=== PATIENT | female | born 1950 | race Caucasian/White ===

== ENCOUNTER 2019-10-19 17:09 | Observation (INO) | payer MEDICARE, SELFPAY ==
[2019-10-19] VITALS (8 sets, daily range): BP systolic 122–169; BP diastolic 59–96; PULSE 64–90; RESP 14–18; TEMP 36.5–36.7; O2SAT 95–97; BMI 36.0
--- NOTE | 2019-10-19 17:33 | XR_ITS ---
WS: [id number] Portable AP upright chest, 10/19/2019 Clinical Data: chest pain Comparison: Portable chest, 10/06/2016. Findings: No nodules, masses or effusions are seen. The heart is normal. The pulmonary vascularity is not increased. No pneumonia or pneumothorax is seen. XR/XR chest 1V portable [id number] Impression: Negative chest.
--- NOTE | 2019-10-19 17:33 | ECG_ITS ---
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 Measurements Intervals [place] Rate: 71 P: 50 WV: 151 QRS: 15 QRSD: 99 T: 64 QT: 379 QTc: 414 Interpretive Statements SINUS RHYTHM ST DEVIATION AND MODERATE T-WAVE ABNORMALITY, CONSIDER LATERAL ISCHEMIA [-0.1+ mV T WAVE IN I/aVL/V5/V6] Compared to ECG 10/06/2016 15:49:52 Possible ischemia now present T-wave abnormality still present Electronically Signed On 10-20-2019 19:16:30 CDT by Bang Figueroa M.D. [email or web address]eJammingw[facility] hospitalV[facility]illion[facility].[employer]/store/OM/[id number]/[id number]
[2019-10-19] MEDS: aspirin 81 mg Chew Tablet 324 MG PO (18:06)
--- NOTE | 2019-10-19 18:22 | W.ED.WEAKNES ---
HPI - Weakness General: Chief complaint: Weakness Stated complaint: sent by dr camarena Time Seen by Provider: 10/19/19 17:43 Source: patient and family Mode of arrival: ambulatory Limitations: no limitations History of Present Illness: HPI Narrative: Mrs. Laws is a nice 69-year-old female comes in complaining of fatigue for the past 1 month and then pain in the middle of her shoulder blades for the past 3 weeks. Patient says there are nonspecific things that make her chest pain better or worse. She cannot definitively tie exertion with this making her symptoms worse. She does get partial relief with nitroglycerin. At times the pain will radiate but not consistently. Patient states that at various times she will get associated symptoms such as shortness of breath, diaphoresis, and nausea but not always consistently. Patient was seen by Dr. Kirby her construction mgr in the office today and he directed her to come here as he believes these symptoms are likely crescendo angina. Associated symptoms: Reports chest pain and nausea; Denies chills, confusion, melena, diaphoresis, dysuria, easy bruising, fever(s), headache(s), syncope or vomiting Review of Systems Const: Denies: fever(s), chills, body aches, fatigue, malaise or diaphoresis Eyes: Denies: change in vision, blurry vision, blind spots, photophobia, eye discharge or eye redness ENMT: Denies: throat pain, odynophagia, hoarseness, swelling of lips/tongue, oral sores, ear or mastoid pain, ear discharge, change in hearing or nasal discharge Card: Reports: chest pain; Denies: palpitations, irregular heart rhythm, edema, lightheadedness, syncope, pre-syncope, dyspnea on exertion or orthopnea Resp: Reports: dyspnea; Denies: productive cough, non-productive cough, wheezing, hemoptysis or chest congestion GI: Reports: nausea; Denies: abdominal pain, vomiting, hematemesis, coffee ground emesis, heartburn, diarrhea, constipation, GI cramping, hematochezia or melena : Denies: flank pain, dysuria, urinary frequency, urinary urgency or hematuria Musc: Denies: neck pain, back pain, extremity pain, extremity swelling, joint pain, joint swelling, joint redness, joint warmth or joint stiffness Skin/Breast: Denies: rash, pruritus, erythema, skin tenderness or jaundice Neuro: Denies: headache(s), numbness in extremities, weakness in extremities, sensory changes, lack of coordination, difficulty walking, dizziness, vertigo, confusion, Slurred speech present or seizure-like activity Bernardino/Lymph: Denies: easy bruising, easy bleeding, petechiae, purpura or enlarged lymph nodes All/Imm: Denies: urticaria, throat swelling, tongue swelling, facial swelling or acute wheezing PFSH ED PFSH: Medical History Atherosclerotic heart disease of [place] coronary artery without angina pectoris Chronic obstructive pulmonary disease, unspecified Essential (primary) hypertension Ischemic cardiomyopathy Type 2 diabetes mellitus without complications Surgical History H/O hysterectomy for benign disease Stented coronary artery Social History Smoking and tobacco status: former smoker Second hand smoke exposure: No Smoking risk assessment/counseling performed?: No Alcohol intake: never Physical Exam Const: COMMON NORMALS: no acute distress, patient oriented x3, no limitations, healthy appearing and well nourished GENERAL APPEARANCE: cooperative, well kempt and well developed HENMT: COMMON NORMALS: normocephalic, atraumatic, external ears normal, EAC's normal and Normal external nose present HEAD & SCALP: normal to inspection, normocephalic and atraumatic FACE & SINUS: normal facial exam and face symmetric NOSE: Normal external nose present and Normal nares present EXTERNAL EAR: Yes external ears normal EXTERNAL AUDITORY CANAL: EAC's normal MOUTH: Normal oral and palatal mucosa present, lip normal and tongue normal Eye: COMMON NORMALS: Equal, round and reactive pupils present and conjunctivae normal GENERAL EYE: appearance normal, both eyes and all related structures ALIGNMENT: Yes alignment normal PERIORBITAL: periorbital findings normal EYELID: eyelids normal CONJUNCTIVA: Yes conjunctivae normal SCLERA: sclerae normal PUPIL: Yes Equal, round and reactive pupils present Neck/C-Spine: COMMON NORMALS: full ROM, no lymphadenopathy, supple, no meningeal signs and no JVD GENERAL: Yes normal visual inspection and Yes trachea midline Chest: COMMONS NORMALS: normal inspection of the chest and normal palpation of entire chest wall Resp: COMMON NORMALS: normal respiratory effort, No retractions and No use of accessory muscles EFFORT & INSPECTION: Yes able to speak in complete sentences and Yes symmetric chest movement AUSCULTATION: no crackles, no rales, no rhonchi and no wheezes Cardio: COMMON NORMALS: no JVD, regular rate, regular rhythm, S1 normal heart sound present and S2 normal heart sound present RATE: regular rate RHYTHM: regular rhythm HEART SOUNDS: S1 normal heart sound present, S2 normal heart sound present, no click, no gallops, no murmurs, no rubs and abnormal split S2 GI: COMMON NORMALS: Soft to palpation and No hepatosplenomegaly present PALPATION: Yes Soft to palpation, No Tenderness to palpation present (GI), No Guarding due to palpation present (GI), No Rigid due to palpation, Yes No hepatosplenomegaly present, No Hernia present, No Palpable mass present and No Pulsatile mass present : COMMON NORMALS: Yes no CVA tenderness BLADDER/KIDNEY EXAM: Yes no CVA tenderness EXTERNAL FEMALE EXAM: No Hernia present Back/Pelvis: COMMON NORMALS: no CVA tenderness, thoracic and lumbar spine normal to inspection, no thoracic nor lumbar tenderness and thoraco-lumbar ROM normal Extremity: COMMON NORMALS: normal to inspection, full ROM, capillary refill normal, no joint enlargement, no clubbing, cyanosis or edema and no calf tenderness Neuro: COMMON NORMALS: patient oriented x3, CN's II-XII intact bilaterally, moves all extremities, no focal motor deficits and no sensory deficits noted MENINGEAL SIGNS: Yes no meningeal signs SPEECH: speech normal Psych: COMMON NORMALS: mental status grossly normal, Normal thought process present, cooperative, normal affect, speech normal and activity/motor behavior normal APPEARANCE: Yes well kempt SPEECH: Yes normal speech THOUGHT PROCESS: Normal thought process present Skin: COMMON NORMALS: no rashes or lesions noted, turgor normal, no jaundice, no petechiae and no mottling GENERAL SKIN EXAM: no rashes or lesions noted and turgor normal Course Vital Signs: Vital signs: Vital Signs Temperature 97.7 F 10/19/19 21:00 Pulse Rate 72 10/19/19 23:21 Respiratory Rate 16 10/19/19 23:21 Blood Pressure 122/59 10/19/19 23:21 Pulse Oximetry 95 10/19/19 23:21 MDM - Weakness MDM Narrative: Medical decision making narrative: 1999 - The case was reviewed with Dr. Camarena, he knows the patient well and and sent her over from the office. He agrees to admit and will likely perform a heart cath tomorrow. I reviewed this plan with the patient and she is in agreement. She denies having other questions or concerns. This time I see no sign of pulmonary embolism as the patient is not hypoxic, tachycardic as she has no leg pain or swelling. She was on aortic dissection she does not describe her pain as ripping or tearing or migrating and her pulses are intact without any discrepancies. Clinically the patient's symptoms sound more cardiac in nature and she has an abnormal EKG from baseline. I believe it would be most appropriate to rule her out and perform a heart cath per Dr. Colby's discretion of course. Patient's chest x-ray is normal. At this time she is pain-free after 2 sublingual nitroglycerin so we then applied nitroglycerin paste. Lab Data: Attestation: I reviewed the patient's lab results. Labs: Lab Results 10/19/19 10/19/19 10/19/19 Range/Units 18:40 18:40 18:40 WBC 6.8 (4.0-10.0) 10^3/ uL RBC 4.48 (4.1-5.3) 10^6/u L Hgb 13.5 (11.5-15.3) g/dL Hct 40.5 (37.0-47.0) % MCV 90.4 (81-99) fL MCH 30.1 (28.0-34.0) pg MCHC 33.3 (30.0-36.0) g/dL RDW 12.4 (12.1-15.1) % Plt Count 327 (130-400) 10^3/c mm MPV 10.7 H (7.4-10.4) fL Neut % (Auto) 50.0 % Lymph % (Auto) 41.7 % Anson % (Auto) 5.7 % Eos % (Auto) 2.2 % Baso % (Auto) 0.3 % Neut # (Auto) 3.40 (1.8-7.7) 10^3/u L Lymph # (Auto) 2.8 (0.8-4.8) 10^3/u L Anson # (Auto) 0.4 (0.2-0.9) 10^3/u L Eos # (Auto) 0.2 (0.0-0.8) 10^3/u L Baso # (Auto) 0.0 (0.0-0.1) 10^3/u L Nucleated RBC % (a uto) 0 % Nucleated RBCs # 0.0 /100WBC Sodium 138 (136-145) mmol/L Potassium 3.8 (3.5-5.1) mmol/L Chloride 101 (98-107) mmol/L Carbon Dioxide 25 (22-29) mmol/L Anion Gap 15.8 (5-19) BUN 15 (8-23) mg/dL Creatinine 1.1 H (0.5-0.9) mg/dL GFR Calculation 49.5 L (90-130) mL/min Glucose 133 H (65-115) mg/dL Calculated Osmolal ity 284 L (285-295) mOsm/k g Calcium 9.6 (8.5-10.5) mg/dL Total Bilirubin 0.2 (0.15-1.2) mg/dL AST 16 (0-32) U/L ALT 12 (0-33) U/L Alkaline Phosphata se 68 (35-105) IU/L Troponin T Baselin e 9 (0-10) ng/L Total Protein 7.1 (6.6-8.7) g/dL Albumin 4.6 (3.5-5.2) g/dL Globulin 2.5 (1.3-4.6) g/dL Imaging Data^: CXR: My impression: No acute cardiopulmonary findings. EKG Data^: EKG 1: Attestation: I personally reviewed and interpreted this EKG as follows: EKG interpretation date: 10/19/19 EKG interpretation time: 18:04 Interpretation: Normal sinus rhythm at 71 beats a minute, ST segment depression in V2, V4, V5, V6 and II. findings are change from previous. EKG 2: Attestation: I personally reviewed and interpreted this EKG as follows: EKG interpretation date: 10/19/19 EKG interpretation time: 19:21 Interpretation: Normal sinus rhythm at 71 beats a minute, nonspecific ST and T wave changes consistent with previous. Unchanged from previous. PAC noted. Discharge Plan Discharge Patient Disposition: Placed in Observation Admit Provider: Bang Camarena Clinical Impression: Chest pain Qualifiers: Chest pain type: unspecified Qualified Code(s): R07.9 - Chest pain, unspecified Condition: Stable Referrals: Nicanor Almeida Jr, MD [Primary Care Provider] - Discharge Date/Time: 10/19/19 20:51 Coding Level of Care Code ED Ancillary Services Manager Therapy for Chg Fwd Exam Comprehensive
[2019-10-19] MEDS: nitroglycerin 0.4 mg sublingual Tablet SUBLINGUAL ×2 (18:33→19:08)
--- NOTE | 2019-10-19 19:09 | PC.NURSE ---
Report received from Nayely, Security Risk Analyst and care transferred to MASTER Burns
[2019-10-19 19:16] LABS: Troponin(5th) Baseline 9 ng/L (0-10)
[2019-10-19 19:27] LABS: Alanine Aminotransferase 12 U/L (0-33); Albumin Level 4.6 g/dL (3.5-5.2); Alkaline Phosphatase 68 IU/L (35-105); Anion Gap 15.8 (5-19); Aspartate Amino Transferase 16 U/L (0-32); Blood Urea Nitrogen 15 mg/dL (8-23); Calcium 9.6 mg/dL (8.5-10.5); Carbon Dioxide 25 mmol/L (22-29); Chloride 101 mmol/L (98-107); Globulin 2.5 g/dL (1.3-4.6); Glomerular Filtration Rate 49.5 mL/min (90-130); Glucose 133 mg/dL (65-115); Osmolality Calculated 284 mOsm/kg (285-295); Potassium 3.8 mmol/L (3.5-5.1); Sodium 138 mmol/L (136-145); Total Bilirubin 0.2 mg/dL (0.15-1.2); Total Protein 7.1 g/dL (6.6-8.7)
[2019-10-19] MEDS: nitroglycerin 1 gm/inch oint Pkt 1 INCH TOPICAL (19:29)
--- NOTE | 2019-10-19 19:33 | ECG_ITS ---
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 Measurements Intervals [place] Rate: 71 P: 52 UT: 159 QRS: 14 QRSD: 96 T: 31 QT: 390 QTc: 425 Interpretive Statements SINUS RHYTHM ST DEVIATION AND MODERATE T-WAVE ABNORMALITY, CONSIDER LATERAL ISCHEMIA [-0.1+ mV T WAVE IN I/aVL/V5/V6] Compared to ECG 10/19/2019 18:04:45 No significant changes Electronically Signed On 10-20-2019 19:18:36 CDT by Bang Figueroa M.D. [id number]
[2019-10-19 19:46] LABS: Basophils % 0.3 %; Eosinophils # 0.2 10^3/uL (0.0-0.8); Eosinophils % 2.2 %; Hematocrit 40.5 % (37.0-47.0); Hemoglobin 13.5 g/dL (11.5-15.3); Lymphocytes # 2.8 10^3/uL (0.8-4.8); Lymphocytes % 41.7 %; Mean Corpuscular HGB Conc 33.3 g/dL (30.0-36.0); Mean Corpuscular Hemoglobin 30.1 pg (28.0-34.0); Mean Corpuscular Volume 90.4 fL (81-99); Mean Platelet Volume 10.7 fL (7.4-10.4); Monocytes # 0.4 10^3/uL (0.2-0.9); Monocytes % 5.7 %; Nucleated Red Blood Cells % 0 %; Platelet Count 327 10^3/cmm (130-400); Red Blood Count 4.48 10^6/uL (4.1-5.3); Red Cell Distribution Width 12.4 % (12.1-15.1); White Blood Count 6.8 10^3/uL (4.0-10.0)
[2019-10-19] MEDS: enoxaparin 100 mg/mL Syringe 104 MG SUBCUT (20:20)
--- NOTE | 2019-10-19 20:45 | PC.NURSE ---
morphine and zofran not given per HCP verbal orders
--- NOTE | 2019-10-19 20:58 | P.HP_ITS ---
Providers/Chief Complaint Admitting Physician: Bang Camarena MD Primary Care Provider: Nicanor Almeida Jr, MD Chief Complaint: sent by dr camarena History of Present Illness Dennise Laws is a 69 year old female past medical history significant for acute coronary syndrome status post drug-eluting stents 4 years ago, diabetes mellitus, COPD, history of tobacco abuse presented with worsening of chest pain shortness of breath despite of optimal medical management for the last 2 weeks now to the extent that in the past 1 week patient has been awakened from the sleep 2-3 times with chest pain nitroglycerin relieved it. Since yesterday chest pain remains in the background throughout the day. She has also noticed worsening of shortness of breath and extreme fatigue. Twelve-lead EKG has anterolateral inverted T wave could be ischemia. Chest pain in the ER was relieved with nitroglycerin. Patient has been therefore admitted to rule out for acute coronary syndrome and for further treatment Review of Systems Const: Denies: fever(s), chills, body aches, fatigue, malaise or diaphoresis Eyes: Denies: change in vision, blurry vision, blind spots, photophobia, eye discharge or eye redness ENMT: Denies: throat pain, odynophagia, hoarseness, swelling of lips/tongue, oral sores, ear or mastoid pain, ear discharge, change in hearing or nasal discharge Card: Reports: chest pain; Denies: palpitations, irregular heart rhythm, edema, lightheadedness, syncope, pre-syncope, dyspnea on exertion or orthopnea Resp: Reports: dyspnea; Denies: productive cough, non-productive cough, wheezing, hemoptysis or chest congestion GI: Denies: abdominal pain, nausea, vomiting, hematemesis, coffee ground emesis, heartburn, diarrhea, constipation, GI cramping, hematochezia or melena : Denies: flank pain, dysuria, urinary frequency, urinary urgency or hematuria Musc: Denies: neck pain, back pain, extremity pain, extremity swelling, joint pain, joint swelling, joint redness, joint warmth or joint stiffness Skin/Breast: Denies: rash, pruritus, erythema, skin tenderness or jaundice Neuro: Denies: headache(s), numbness in extremities, weakness in extremities, sensory changes, lack of coordination, difficulty walking, dizziness, vertigo, confusion, Slurred speech present or seizure-like activity [place]/Lymph: Denies: easy bruising, easy bleeding, petechiae, purpura or enlarged lymph nodes All/Imm: Denies: urticaria, throat swelling, tongue swelling, facial swelling or acute wheezing Medications/Allergies Home Medications Medication Instructions Recorded Confirmed Last Taken Type aspirin 81 mg tablet,delayed 81 mg PO DAILY 04/14/19 10/19/19 10/19/19 History release clopidogrel 75 mg tablet 75 mg PO DAILY 04/14/19 10/19/19 10/19/19 History glipizide 5 mg tablet 5 mg PO BID 04/14/19 10/19/19 10/19/19 History nitrofurantoin macrocrystal 50 mg 50 mg PO BEDTIME cap 04/14/19 10/19/19 10/18/19 History capsule pantoprazole 40 mg tablet,delayed 40 mg PO DAILY 04/14/19 10/19/19 10/19/19 History release prednisone 20 mg tablet See Rx Instructions .ROUTE 04/14/19 10/19/19 10/19/19 History .COMPLEX tab 10 mg simvastatin 20 mg tablet 20 mg PO DAILY 04/14/19 10/19/19 10/18/19 History losartan 50 mg-hydrochlorothiazide 1 tab PO BID #60 tab 10/08/19 10/19/19 10/19/19 Rx 12.5 mg tablet carvedilol 6.25 mg PO BID 10/19/19 10/19/19 10/19/19 History metformin 500 mg PO DAILY 10/19/19 10/19/19 10/19/19 History Allergies Allergy/AdvReac Type Severity Reaction Status Date / Time Sulfa (Sulfonamide Allergy UNKNOWN Verified 10/19/19 18:13 Antibiotics) PFSH Acute PFSH: Medical History Atherosclerotic heart disease of [place] coronary artery without angina pectoris Chronic obstructive pulmonary disease, unspecified Essential (primary) hypertension Ischemic cardiomyopathy Type 2 diabetes mellitus without complications Surgical History H/O hysterectomy for benign disease Stented coronary artery Social History Smoking and tobacco status: former smoker Second hand smoke exposure: No Smoking risk assessment/counseling performed?: No Alcohol intake: never Vitals/I&O/Wt Last Vital Signs Temp 98.1 F 10/19/19 17:11 Pulse 69 10/19/19 20:45 Resp 14 10/19/19 20:45 BP 135/61 10/19/19 20:45 Pulse Ox 96 10/19/19 20:45 Weight last 48 hrs Weight 230 lb Physical Exam Narrative: EXAM NARRATIVE: GENERAL: Patient is alert, awake and oriented x3. NECK: No jugular vein distension. HEENT: No cyanosis. No icterus. No pallor. HEART: Regular S1 and S2. No murmur, rub or gallop. LUNGS: Clear to auscultate bilaterally. ABDOMEN: Soft, nontender and nondistended. Positive bowel sounds. No guarding, rebound or tenderness. CENTRAL NERVOUS SYSTEM: Grossly nonfocal. EXTREMITIES: Lower extremities without edema bilaterally. Data : 10/19/19 18:40 10/19/19 18:40 A&P Assessment and plan (1) Chest pain: Worsening of chest pain with increasing frequency and duration in a pat ient who has prior history of coronary artery disease tobacco abuse hypertension hyperlipidemia and diabetes suspicious for unstable angina therefore we will proceed with angiogram. We will start anticoagulation. We will optimize medicine. Nitro paste will be added. Further plan will be advised Status: Acute Qualifiers: Chest pain type: unspecified Qualified Code(s): R07.9 - Chest pain, unspecified (2) Atherosclerotic heart disease of [place] coronary artery without angina pectoris: Patient has history of coronary artery disease status post drug-eluting stents. She is here with worsening of chest pain suspicious for unstable angina we will proceed with angiogram/left heart cath/PCI if indicated tomorrow in the evening. Patient has been explained all risk benefit and alternative for the procedure. She would like to proceed with it. Status: Acute Qualifiers: [place] vs. transplanted heart: [place] heart Qualified Code(s): I25.10 - Atherosclerotic heart disease of [place] coronary artery without angina pectoris (3) Essential (primary) hypertension: Optimally controlled continue medicine Status: Acute (4) Type 2 diabetes mellitus without complications: Will hold metformin and use sliding scale insulin. Status: Acute Qualifiers: Diabetes mellitus intermediate manager insulin use: unspecified intermediate manager insulin use status Qualified Code(s): E11.9 - Type 2 diabetes mellitus without complications Attestations Medical Necessity Statement*: Patient require continuation hospitalization I am expecting her stay to cross more than 2 midnights. Coding Level of Care Code New Pt Acute Processing Archivist for Aracely Cline Patient Type New History Detailed Exam Detailed Medical Decision Making Moderate Complexity Diagnoses Chest pain R07.9 Chest pain type: unspecified Atherosclerotic heart disease of [place] coronary artery without angina pectoris I25.10 [place] vs. transplanted heart: [place] heart Essential (primary) hypertension I10 Type 2 diabetes mellitus without complications E11.9 Diabetes mellitus intermediate manager insulin use: unspecified fci insulin use status
--- NOTE | 2019-10-19 21:01 | PC.NURSE ---
Patient arrived to the floor after report was received via phone. Patient is alert and oriented and ambulatory. Patient is on room air with VSS. Patient was found eating food from [employer] when this nurse walked into the room. Patient states that she does not have any pain at this. Patient was educated to let the nurse know if she has pain throughout the night and verbalized understanding. Patient has been oriented to her room and has call light within reach. Will monitor.
[2019-10-19 21:06] LABS: Troponin 5 2HR 7.65 ng/L (0-10)
--- NOTE | 2019-10-19 21:09 | PC.NURSE ---
Dr. Figueroa notified of patient currently eating. Ordered to keep patient NPO through the night and call him at 8 am to verify diet order status and time of cath procedure.
[2019-10-19 21:14] LABS: Troponin 5 2HR Delta -1.35 ABS# (0-10)
--- NOTE | 2019-10-19 21:24 | PC.NURSE ---
Dr. Figueroa notified that patient has not had the nighttime dose of her medications. Ordered to hold Glipizide and Metformin. Ordered to start mod SS and change Coreg dose to start tonight.
--- NOTE | 2019-10-19 21:41 | PC.NURSE ---
Patient states that she only has one kidney.
[2019-10-19] MEDS: hydroCHLOROthiazide 25 mg Tablet 12.5 MG PO (21:52)
[2019-10-19] MEDS: sodium chloride 0.9% 1,000 ML 100 ML IV (21:52)
[2019-10-19] MEDS: carvedilol 6.25 mg Tablet PO (21:52)
[2019-10-19 21:58] LABS: Glucose Point of Care 221 mg/dL (70-110)
--- NOTE | 2019-10-19 22:04 | PC.NURSE ---
Dr. Figueroa notified that patient did not have any pain when she first arrived to the floor, but is now complaining of the pain coming back between her shoulder blades. Ordered to give 15 mg Isosorbide PO now and SL nitro PRN.
--- NOTE | 2019-10-19 22:12 | PC.NURSE ---
Dr. Figueroa called to notify that pharmacy states we do not have 15 mg tablet available in isosorbide mono. Ordered to give 20 mg.
[2019-10-19] MEDS: isosorbide mononitrate 20 mg Tablet PO (22:17)
--- NOTE | 2019-10-19 23:22 | PC.NURSE ---
Patient was woken from her sleep to check vital signs. Patient states that her pain is gone. Will continue to monitor and reassess.
--- NOTE | 2019-10-19 23:33 | ECG_ITS ---
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 Measurements Intervals [place] Rate: 71 P: 60 OR: 169 QRS: 29 QRSD: 98 T: 214 QT: 391 QTc: 427 Interpretive Statements SINUS RHYTHM WITH SINUS ARRHYTHMIA ST DEVIATION AND MODERATE T-WAVE ABNORMALITY, CONSIDER ANTEROLATERAL ISCHEMIA [-0.1+ mV T WAVE IN V3-V6] Compared to ECG 10/19/2019 19:21:16 No significant changes Electronically Signed On 10-20-2019 19:19:13 CDT by Bang Figueroa M.D. [id number]
[2019-10-20] VITALS (16 sets, daily range): BP systolic 91–144; BP diastolic 57–78; PULSE 65–83; RESP 14–20; TEMP 36.3–36.9; O2SAT 93–99
[2019-10-20 00:57] LABS: Troponin 5 6HR 8.38 ng/L (0-10)
[2019-10-20 01:03] LABS: Troponin 5 6HR Delta -0.62 ng/L (0-12)
--- NOTE | 2019-10-20 03:17 | PC.NURSE ---
Patient states I have no pain at all right now. Will monitor.
[2019-10-20 04:33] LABS: Basophils % 0.5 %; Eosinophils # 0.2 10^3/uL (0.0-0.8); Eosinophils % 2.7 %; Hematocrit 33.5 % (37.0-47.0); Hemoglobin 11.4 g/dL (11.5-15.3); Lymphocytes # 2.9 10^3/uL (0.8-4.8); Lymphocytes % 45.4 %; Mean Corpuscular Hemoglobin 31.1 pg (28.0-34.0); Mean Corpuscular Volume 91.5 fL (81-99); Mean Platelet Volume 10.2 fL (7.4-10.4); Monocytes # 0.4 10^3/uL (0.2-0.9); Monocytes % 6.2 %; Neutrophils # 2.84 10^3/uL (1.8-7.7); Nucleated Red Blood Cells % 0 %; Platelet Count 236 10^3/cmm (130-400); Red Blood Count 3.66 10^6/uL (4.1-5.3); Red Cell Distribution Width 12.6 % (12.1-15.1); White Blood Count 6.3 10^3/uL (4.0-10.0)
[2019-10-20 04:48] LABS: Anion Gap 13.3 (5-19); Blood Urea Nitrogen 19 mg/dL (8-23); Calcium 8.2 mg/dL (8.5-10.5); Carbon Dioxide 26 mmol/L (22-29); Chloride 102 mmol/L (98-107); Glomerular Filtration Rate 49.5 mL/min (90-130); Glucose 137 mg/dL (65-115); Osmolality Calculated 285 mOsm/kg (285-295); Potassium 3.3 mmol/L (3.5-5.1); Sodium 138 mmol/L (136-145)
[2019-10-20 06:26] LABS: Glucose Point of Care 145 mg/dL (70-110)
--- NOTE | 2019-10-20 06:51 | PC.NURSE ---
chemistry lab instructor called to let me know that patient's IV would need to be moved from the right wrist to another location for possible angiogram procedure today. Attempt x2 by this RN and attempt x2 by another RN with no success. Will have another nurse try at a later time.
[2019-10-20] MEDS: sodium chloride 0.9% 1,000 ML 100 ML IV (06:53)
--- NOTE | 2019-10-20 06:54 | PC.NURSE ---
Patient is complaining of a headache at this time. Patient is stating she does not want anything for it at this time.
[2019-10-20] MEDS: atorvastatin 40 mg Tablet 20 MG PO (08:30)
[2019-10-20] MEDS: pantoprazole DR 40 mg Tablet PO (08:30)
[2019-10-20] MEDS: aspirin 81 mg EC Tablet PO (08:31)
[2019-10-20] MEDS: hydroCHLOROthiazide 25 mg Tablet 12.5 MG PO (08:31)
[2019-10-20] MEDS: clopidogrel 75 mg Tablet PO (08:31)
[2019-10-20] MEDS: losartan 50 mg Tablet PO (08:31)
[2019-10-20] MEDS: acetaminophen 325 mg Tablet 650 MG PO (08:32)
[2019-10-20] MEDS: carvedilol 6.25 mg Tablet PO (08:32)
--- NOTE | 2019-10-20 11:17 | PC.CHAP ---
Pastoral Care Encounter/Spiritual Assessment Type of Contact [] Declined roving frame tender visit [] Patient/Family/Request visit [] Outpatient visit [] Follow-up visit [] Physician referral [] Code/Alert [x] Routine visit [] Staff referral [] Actively dying [] Patient sleeping [] Family support [] [] Out of room [] Palliative care [] [x] Receiving care in room [] Pre-surgical visit [] Trauma [] Long length of stay [] ICU visit [] Other: Relational/Emotional Strength [c] Patient feels connected with others/family/visitors/staff [] Distress [] Loneliness/isolation [] Abandonment Spirituality of Patient [c] Person of [place] [] Attends Religion of their [place] [c] Believes in Prayer [] Reads Bible or Yazidism materials [] There are Spiritual issues to be addressed Primer Press Operator Interventions [c] Prayer [c] Active listening [c] Non-anxious presence [c] Spiritual/emotional support [] Crisis/trauma care [c] Spiritual counseling [] Bereavement support [] Provided bereavement packet [] Provided Bible/devotional materials [] Provided toy/stuffed animal, coloring book to patient or family member [] Provided Communion [] Anointing/[place] [] Salvation [c] Completed spiritual assessment [] Other: Impact on Illness or Injury [] Angry [] Fearful [] Anxious [] Often cries [] Exhaustion [] Unable to work [] Unable to attend pentecostalism [] Unable to walk/stand [] Unable to read [] Unable to drive [] Unable to eat/drink [] Unable to sleep [] Unable to be with family [] Patient intubated [] Other: Summary Heart needs tests, not sure about recovery, feels good communication Time spent with patient 10 mins
[2019-10-20 11:20] LABS: Glucose Point of Care 111 mg/dL (70-110)
--- NOTE | 2019-10-20 11:44 | XACV_ITS ---
Exam Room: [facility] Ht: 170 cm Wt: 104 kg BSA: 2.26 m2 Gender: Female : 1950 Any Known Allergies: Sulfa Exam Priority: Routine Procedure(s): Procedure Description: Diagnostic procedure Procedure Description: Coronary Angiography Diagnostic Cath Status: Elective Diagnostic Findings LM has 0% stenosis. mLAD: Mild 30% stenosis, JASON: 3 flow. pCIRC: Mild 30% stenosis, JASON: 3 flow. 1st OM: Mild 40% stenosis, JASON: 3 flow. pRCA: Moderate 60% stenosis, JASON: 3 flow. Coronary angiography shows right dominance. Conclusions There is moderate coronary artery disease with three vessel disease. Reason for test coronary angiogram: 70-year-old female past medical history significant for multiple stents for acute coronary syndrome mid LAD and RCA was admitted with worsening of shortness of breath chest pain despite of optimization of medicine. She was ruled out for acute coronary syndrome in the hospital. Since she has off-and-on chest pain relieved with nitroglycerin she was taken to the [facility] for further study of coronaries1-Left main is normal2-LAD has patent previously placed mid stent3-Obtuse marginal has proximal hazy-looking 30% stenosis4-LCx has proximal 30% stenosis rest of the vessel luminal irregularities5-Proximal and distal RCA stent are patent. Proximal RCA has 60% ostial stenosis dampening of pressure across that was noted it appeared to me that patient has coronary spasm however she still has moderate lesion in the ostium of the RCA. Since patient has regurgitation of the contrast in the aorta and after nitroglycerin plus because of the fact that no further dampening was observed after using sidehole catheter we decided to treat it medically. Recommendations Continue current medical management and risk factor modification. Diagnostic RX Recommendation: medical therapy and/or counseling Pressures Phase:Rest AO : 80 mmHg / 42 mmHg ( 59 mmHg ) @ 7:07:00 AM 70 mmHg / 20 mmHg ( 35 mmHg ) @ 7:11:00 AM 107 mmHg / 43 mmHg ( 67 mmHg ) @ 7:16:00 AM 95 mmHg / 43 mmHg ( 64 mmHg ) @ 7:17:00 AM 107 mmHg / 49 mmHg ( 72 mmHg ) @ 7:18:00 AM Clinical Evaluation EBL: 5mL-10mL Procedural Details Procedure Consent Obtained. Pre-Procedure Time Out. Identified patient by full name and date of as verbalized by the patient/guarantor. Does the consent match the physician's order: Yes. Accurate & Complete Informed Consent: Yes. Inpatient/Outpatient History & Physical on Chart: Yes. If H&P is completed, is and addenduem needed: Yes; If yes, is the addendum complete: Yes. Visualize and Verify Site with Patient/Guarantor: N/A. Relevant Radiology Images available: Yes. Pre-op teaching completed and patient verbalized understanding. The risks, benefits, and alternatives of sedation and/or procedure were discussed by physician. The patient agrees to continue. Procedure started. Correct patient, site and procedure confirmed by cath team. Current diagnosis: Chest Pain. PERRLA. Strong, equal hand petal shaper hand bilaterally. Lungs clear x 5 lobes. IV Site on Arrival: 20 gauge in the left anticubital. IV Fluids: 0.9% NaCl at KVO. 0 mL infused prior to lab systems analyst. Pre Procedural Pulses: bilateral dorsalis pedis was 2+. Pre Procedural Pulses: bilateral posterior tibial was 2+. Pre Procedural Pulses: bilateral radial was 3+. Oxygen started at 2liters/min via nasal canula. bilateral groins was prepped with chloroprep then draped in the usual sterile fashion. right radial was prepped with chloroprep then draped in the usual sterile fashion. Physician notified. Baseline sample Acquired. HR: 66 BPM. Physician arrived. Equipment: 6F - Radial. Cardiac Cath Pack. ACIST Manifold Kit Model BT 2000. Heparinized Saline (2 units/mL), 1000 mL bag. Physician scrubbed in. Immediate Pre-Procedure Time Out. Correct Patient: Yes; Correct Procedure: Yes; Correct Site: Yes; Correct Patient Position: Yes; Correct Supplies: Yes; Dried Flammable Prep: Yes; Blood Products Available: No;. Lidocaine 1% infiltrated to the right radial. AP pads placed on patient. Arterial access obtained. A 5 luxembourger TIG catheter in over wire. Multiple views taken of left coronary artery. Catheter redirected to the RCA. Multiple views taken of right coronary artery. Catheter out. 6 luxembourger JR 4 SH guide catheter was inserted over the wire. Side port of sheath attached to Normal Saline flush at KVO to maintain patency. TR band placed. Hemostasis obtained. Post Procedure: Pulses reassessed and unchanged. PERRLA. Strong, equal hand petal shaper hand bilaterally. No VTE prophylaxis required. Contrast type used: Omnipaque 300 mgI/mL, 500 mL bottle. Post-op diagnosis: Chest pain. Complications: None. Estimated blood loss: 5mL-10mL. [facility] Clinical Fraility Score: 3: Managing Well. [facility] Indications: Worsening Angina. Chest Pain Symptom Assessment: Typical Angina Symptoms. Cardiovascular Instability: No. Medication's Wasted: Lidocaine 1% = 18 mL. Medication's Wasted: Heparin = 1000 units. Total IV fluids: 200 mL. Vital chart was stopped. Procedure completed. Patient transferred by wheelchair to 1st floor. Site: Right Radial artery Sheath Size: 6 Fr Hemostasis Success: Unsuccessful Procedure Medications Start: 11:52 AM Stop: 11:52 AM Medication: Versed Amount: 1 mg Route: I.V. Start: 11:52 AM Stop: 11:52 AM Medication: Fentanyl Amount: 50 mcg Route: I.V. Start: 11:56 AM Stop: 11:56 AM Medication: Versed Amount: 1 mg Route: I.V. Start: 11:56 AM Stop: 11:56 AM Medication: Fentanyl Amount: 50 mcg Route: I.V. Start: 12:02 PM Stop: 12:02 PM Medication: Nitrogylcerin Amount: 200 mcg Route: I.A. Start: 12:04 PM Stop: 12:04 PM Medication: Heparin Amount: 5000 units Route: I.V. Start: 12:19 PM Stop: 12:19 PM Medication: Nitrogylcerin Amount: 200 mcg Route: I.C. I, the attending physician, have reviewed and verified all procedure medications. Yes, all medications given per verbal order History/Risk Factors Hypertension: No Dyslipidemia: No Peripheral Arterial Disease (PAD): No Myocardial Infarction (HI): No Obesity: Yes Renal Disease: No Prior Interventions PCI: Yes CABG: No Valve Surgery: No Report Signatures Finalized by:Bang Figueroa MD on 11/01/2019 6:35:29 PM
--- NOTE | 2019-10-20 13:43 | PC.NURSE ---
Patient arrived back to floor from medical lab specialist at 1245. TR band intact with 19 ml of air. Site asymptomatic. VS WNL. Nurse to continue to monitor.
--- NOTE | 2019-10-20 13:55 | PM.PN ---
Subjective Subjective: Interval history: Patient underwent angiogram which showed patent previously placed LAD and RCA stents without any significant in-stent restenosis. Patient was also noted to have proximal RCA spasm at the ostium with dampening of the pressure. Vitals/I&O/Wt Last Vital Signs Temp 98.5 F 10/20/19 10:43 Pulse 73 10/20/19 13:45 Resp 14 10/20/19 13:45 BP 140/57 10/20/19 13:45 Pulse Ox 95 10/20/19 13:45 10/19/19 10/20/19 10/20/19 22:59 06:59 14:59 Intake Total 1201.667 / 1201.667 Balance 1201.667 / 1201.667 Weight last 48 hrs Weight 230 lb Physical Exam Narrative: EXAM NARRATIVE: GENERAL: Patient is alert, awake and oriented x3. NECK: No jugular vein distension. HEENT: No cyanosis. No icterus. No pallor. HEART: Regular S1 and S2. No murmur, rub or gallop. LUNGS: Clear to auscultate bilaterally. ABDOMEN: Soft, nontender and nondistended. Positive bowel sounds. No guarding, rebound or tenderness. CENTRAL NERVOUS SYSTEM: Grossly nonfocal. EXTREMITIES: Lower extremities without edema bilaterally. Data : 10/20/19 04:08 10/20/19 04:08 A&P Assessment and plan (1) Atherosclerotic heart disease of [place] coronary artery without angina pectoris: Status post coronary angiogram with patent previously placed stents, ostial RCA coronary spasm with dampening of the pressure noted which was alleviated by using a guide with sideholes. Medical medical management was suggested. Status: Acute Qualifiers: [place] vs. transplanted heart: [place] heart Qualified Code(s): I25.10 - Atherosclerotic heart disease of [place] coronary artery without angina pectoris (2) Essential (primary) hypertension: Needs better control blood pressure will optimize medicine Status: Acute (3) Ischemic cardiomyopathy: Stable and well compensated continue medicine Status: Acute Attestations Medical Necessity Statement*: Patient may can be discharged home once complete bedrest post-cath. Coding Level of Care Code Acute Assistant Health Educator for [facility] Fwd Diagnoses Atherosclerotic heart disease of [place] coronary artery without angina pectoris I25.10 [place] vs. transplanted heart: [place] heart Essential (primary) hypertension I10 Ischemic cardiomyopathy I25.5
--- NOTE | 2019-10-20 14:01 | P.DS_ITS ---
Discharge Providers Date of Admission: 10/19/19 19:58 Date of Discharge: October 20, 2019 Attending Provider at Admission: Bang Camarena MD Attending Provider at Discharge: aBng Camarena MD Primary Care Provider: Nicanor Almeida Jr, MD Diagnoses at Discharge Discharge Diagnosis (1) Atherosclerotic heart disease of [place] coronary artery without angina pectoris: Status: Acute Qualifiers: [place] vs. transplanted heart: [place] heart Qualified Code(s): I25.10 - Atherosclerotic heart disease of [place] coronary artery without angina pectoris (2) Essential (primary) hypertension: Status: Acute (3) Ischemic cardiomyopathy: Status: Acute Reason for Visit Reason for Visit: sent by dr camarena Hospital Course Discharge Summary: For worsening of chest pain or shortness of breath and high suspicion for unstable angina patient was taken to the [facility] after ruling out for non-ST elevation [place]. She was found to have patent previously placed LAD and RCA stents. She was noted to have ostial RCA coronary spasm with dampening of pressure. It was thought not to be mechanical significant lesion. Advised adding isosorbide mononitrate to the regimen and holding atorvastatin for few days make sure that patient does not have cramps or muscular pain mistaken for cardiac. Post cath patient right wrist looks good without significant hematoma. She is completed bedrest and will be discharged soon. Advised to follow-up with primary care physician and cardiology on regular basis. Physical Exam Narrative: EXAM NARRATIVE: GENERAL: Patient is alert, awake and oriented x3. NECK: No jugular vein distension. HEENT: No cyanosis. No icterus. No pallor. HEART: Regular S1 and S2. No murmur, rub or gallop. LUNGS: Clear to auscultate bilaterally. ABDOMEN: Soft, nontender and nondistended. Positive bowel sounds. No guarding, rebound or tenderness. CENTRAL NERVOUS SYSTEM: Grossly nonfocal. EXTREMITIES: Lower extremities without edema bilaterally. Discharge Data Data Completed and Pending: Completed Studies During Hospitalization Category Date Time Status XR chest 1V rosemarie ble [id number] Urgent Exams 10/19/19 17:33 Completed Pending at discharge Category Date Time Status COMPLIANCE REVIEW OFFICER request for service Routin e Exams 10/20/19 11:44 Ordered Labs from last 24 hours 10/20/19 10/20/19 10/20/19 10:45 06:19 04:08 WBC RBC Hgb Hct MCV MCH MCHC RDW Plt Count MPV Neut % (Auto) Lymph % (Auto) [place] % (Auto) Eos % (Auto) Baso % (Auto) Neut # (Auto) Lymph # (Auto) [place] # (Auto) Eos # (Auto) Baso # (Auto) Nucleated RBC % (a uto) Nucleated RBCs # Sodium 138 Potassium 3.3 L Chloride 102 Carbon Dioxide 26 Anion Gap 13.3 BUN 19 Creatinine 1.1 H GFR Calculation 49.5 L Glucose 137 H POC Glucose 111 145 Calculated Osmolal ity 285 Calcium 8.2 L Total Bilirubin AST ALT Alkaline Phosphata se Troponin T Baselin e Troponin T 120 Min [place] Delta Troponin T Troponin T Hi Sens 6Hr Troponin T Hi Sens 6Hr Delta Total Protein Albumin Globulin 10/20/19 10/19/19 10/19/19 04:08 21:54 20:28 WBC 6.3 RBC 3.66 L Hgb 11.4 L Hct 33.5 L MCV 91.5 MCH 31.1 MCHC 34.0 RDW 12.6 Plt Count 236 MPV 10.2 Neut % (Auto) 45.0 Lymph % (Auto) 45.4 [place] % (Auto) 6.2 Eos % (Auto) 2.7 Baso % (Auto) 0.5 Neut # (Auto) 2.84 Lymph # (Auto) 2.9 [place] # (Auto) 0.4 Eos # (Auto) 0.2 Baso # (Auto) 0.0 Nucleated RBC % (a uto) 0 Nucleated RBCs # 0.0 Sodium Potassium Chloride Carbon Dioxide Anion Gap BUN Creatinine GFR Calculation Glucose POC Glucose 221 Calculated Osmolal ity Calcium Total Bilirubin AST ALT Alkaline Phosphata se Troponin T Baselin e Troponin T 120 Min [place] 7.65 Delta Troponin T -1.35 L Troponin T Hi Sens 6Hr Troponin T Hi Sens 6Hr Delta Total Protein Albumin Globulin 10/19/19 10/19/19 10/19/19 18:40 18:40 18:40 WBC 6.8 RBC 4.48 Hgb 13.5 Hct 40.5 MCV 90.4 MCH 30.1 MCHC 33.3 RDW 12.4 Plt Count 327 MPV 10.7 H Neut % (Auto) 50.0 Lymph % (Auto) 41.7 [place] % (Auto) 5.7 Eos % (Auto) 2.2 Baso % (Auto) 0.3 Neut # (Auto) 3.40 Lymph # (Auto) 2.8 [place] # (Auto) 0.4 Eos # (Auto) 0.2 Baso # (Auto) 0.0 Nucleated RBC % (a uto) 0 Nucleated RBCs # 0.0 Sodium 138 Potassium 3.8 Chloride 101 Carbon Dioxide 25 Anion Gap 15.8 BUN 15 Creatinine 1.1 H GFR Calculation 49.5 L Glucose 133 H POC Glucose Calculated Osmolal ity 284 L Calcium 9.6 Total Bilirubin 0.2 AST 16 ALT 12 Alkaline Phosphata se 68 Troponin T Baselin e 9 Troponin T 120 Min [place] Delta Troponin T Troponin T Hi Sens 6Hr Troponin T Hi Sens 6Hr Delta Total Protein 7.1 Albumin 4.6 Globulin 2.5 10/19/19 00:03 WBC RBC Hgb Hct MCV MCH MCHC RDW Plt Count MPV Neut % (Auto) Lymph % (Auto) [place] % (Auto) Eos % (Auto) Baso % (Auto) Neut # (Auto) Lymph # (Auto) [place] # (Auto) Eos # (Auto) Baso # (Auto) Nucleated RBC % (a uto) Nucleated RBCs # Sodium Potassium Chloride Carbon Dioxide Anion Gap BUN Creatinine GFR Calculation Glucose POC Glucose Calculated Osmolal ity Calcium Total Bilirubin AST ALT Alkaline Phosphata se Troponin T Baselin e Troponin T 120 Min [place] Delta Troponin T Troponin T Hi Sens 6Hr 8.38 Troponin T Hi Sens 6Hr Delta -0.62 L Total Protein Albumin Globulin Vitals: Last Vital Signs Temp 98.5 F 10/20/19 10:43 Pulse 73 10/20/19 13:45 Resp 14 10/20/19 13:45 BP 140/57 10/20/19 13:45 Pulse Ox 95 10/20/19 13:45 Discharge Plan Discharge Condition: Stable Prescriptions: New isosorbide dinitrate 10 mg tablet 5 mg PO BID Qty: 60 RF: 4 Continued aspirin [Adult Low Dose Aspirin] 81 mg tablet,delayed release (DR/EC) 81 mg PO DAILY RF: 0 simvastatin 20 mg tablet 20 mg PO DAILY RF: 0 clopidogrel 75 mg tablet 75 mg PO DAILY RF: 0 glipizide 5 mg tablet 5 mg PO BID RF: 0 pantoprazole 40 mg tablet,delayed release (DR/EC) 40 mg PO DAILY RF: 0 prednisone 20 mg tablet See Rx Instructions .ROUTE .COMPLEX RF: 0 nitrofurantoin macrocrystal [Macrodantin] 50 mg capsule 50 mg PO BEDTIME RF: 0 losartan-hydrochlorothiazide 50-12.5 mg tablet 1 tab PO BID Qty: 60 RF: 4 carvedilol 6.25 mg tablet 6.25 mg PO BID RF: 0 metformin 500 mg tablet extended release 24 hr 500 mg PO BEDTIME RF: 0 Discharge Orders: Discharge Order (Routine); Ordered 10/20/19 Ordered By: Bang Camarena Referrals: Bang Camarena MD [Physician] - Nicanor Almeida Jr, MD [Primary Care Provider] - Discharge Diet: Diabetic, Low Salt and Low Cholesterol Discharge Activity: Increase activity as tolerated Patient Instructions: Left Heart Catheterization (DC) Discharge Attestations Time Spent in Discharge Care*: less than 30 min Quality Metrics Clinical Quality Measures During this hospital stay, did patient experience: None Coding Level of Care Code Established Pt Acute Electrical Sign Wirer Helper for Shayyg Fwd Patient Type Established History Expanded Problem Focused Exam Expanded Problem Focused Medical Decision Making Moderate Complexity Diagnoses Atherosclerotic heart disease of [place] coronary artery without angina pectoris I25.10 [place] vs. transplanted heart: [place] heart Essential (primary) hypertension I10 Ischemic cardiomyopathy I25.5
--- NOTE | 2019-10-20 15:03 | PC.NURSE ---
TR band off at 1500. 19 ml of air removed per protocol. Patient tolerated well. Incision asymptomatic. Dressing applied, CDI. Nurse to continue to monitor.
[2019-10-20 16:08] LABS: Glucose Point of Care 198 mg/dL (70-110)
--- NOTE | 2019-10-21 12:18 | PC.RESP ---
Pulmonary Rehab information sent to patient.
== END 2019-10-20 16:30 | disposition home or self-care (01) ==
LOC: ER 20:14 → CSU 20:31
PROVIDERS: Emergency Medicine; Physician Assistant; Admitting Provider Internal Medicine Cardiovascular Disease; PCP Family Medicine; Visit Provider Internal Medicine Cardiovascular Disease
DX: I25.10 Atherosclerotic heart disease of native coronary artery without angina pectoris (principal); R07.9 Chest pain, unspecified; I10 Essential (primary) hypertension; E11.9 Type 2 diabetes mellitus without complications; I25.5 Ischemic cardiomyopathy; Z95.5 Presence of coronary angioplasty implant and graft; J44.9 Chronic obstructive pulmonary disease, unspecified; Z87.891 Personal history of nicotine dependence; Z79.82 Long term (current) use of aspirin; Z79.52 Long term (current) use of systemic steroids
CPT/HCPCS: 12345; 36415; 36416; 71045; 80048; 80053; 82962; 84484; 85025; 93005; 93454; 96360; 96361; 96372; 96374; 96375; 99283; 99284; 99285; C1769; C1887; C1894; G0378; J1644; J1650; J1815; J2250; J3010; J3490; J7030; Q9967

== ENCOUNTER → 2019-10-28 09:41 | Outpatient (BNVA) | payer MEDICARE, SELFPAY | PROVIDERS: PCP Family Medicine; Visit Provider Nurse Practitioner Family | DX: I25.10 Atherosclerotic heart disease of native coronary artery without angina pectoris (principal) | CPT/HCPCS: 80048 ==

== ENCOUNTER 2020-07-01 10:32 | Outpatient (CLI) | payer MEDICARE, SELFPAY ==
--- NOTE | 2020-07-01 10:39 | MM_ITS ---
WS: [id number] BILATERAL DIGITAL SCREENING MAMMOGRAPHY WITH CAD CLINICAL INFORMATION: SCREENING HISTORY: Screening mammogram. No current complaints. COMPARISON: TECHNIQUE: Bilateral CC and MLO views. FINDINGS: Scattered fibroglandular densities bilaterally. No suspicious focal mass, asymmetry, calcifications, or architectural distortion. No evidence of malignancy. A few punctate calcifications MM/[place] [id number] IMPRESSION: BI-RADS: 2-Benign FOLLOW UP: 1 Year Follow-up Recommend return to annual screening mammography.
--- NOTE | 2020-07-01 11:14 | XR_ITS ---
WS: [id number] SCREENING DEXA SCAN [place] CLINICAL INFORMATION: POSTMENOPAUSAL COMPARISON: None. FINDINGS: The L1-L4 bone mineral density measures 1.655 g/cm2. This corresponds to a T score score of 4.0 and Z score of 4.5. Left femoral neck bone mineral density measures 0.935 g/cm2. This corresponds to a T score of -0.6 an d Z score of 0.0. Right femoral neck bone mineral density measures 0.938 g/cm2. This corresponds to a T score -0.5of an d Z score of 0.0. Mean femoral neck bone mineral density measures 0.937 g/cm2. This corresponds to a T score of -0.6 an d Z score of 0.0. XR/XR DEXA axial skeleton* [id number] IMPRESSION: Normal bone mineralization. Patient's FRAX calculated 10 year probability for major osteoporotic fracture i s 18.4 % and osteoporotic hip fracture is 2.3%.
== END 2020-07-01 10:33 | disposition home or self-care (01) ==
LOC: RADSHAW 10:34
PROVIDERS: Visit Provider Nurse Practitioner
DX: Z12.31 Encounter for screening mammogram for malignant neoplasm of breast (principal); Z78.0 Asymptomatic menopausal state
CPT/HCPCS: 77067; 77080

== ENCOUNTER 2020-09-23 10:31 | Outpatient (CLI) | payer MEDICARE, SELFPAY ==
--- NOTE | 2020-09-23 10:42 | XR_ITS ---
WS: [id number] CHEST 2 VIEWS HISTORY: MUCOPURULENT CHRONIC BRONCHITIS COMPARISON: 10/19/2019 Lungs: Clear with no abnormality. No pleural effusion or pneumothorax. Cardiac size: Normal. Mediastinum/Aorta: No mediastinal widening. Scattered calcification in aorta. Bones: Normal. XR/XR chest 2V* [id number] IMPRESSION: Mild atherosclerosis aorta. Otherwise negative.
== END 2020-09-23 10:32 | disposition home or self-care (01) ==
PROVIDERS: Visit Provider Nurse Practitioner
DX: J41.1 Mucopurulent chronic bronchitis (principal); I70.0 Atherosclerosis of aorta
CPT/HCPCS: 71046

== ENCOUNTER → 2021-08-09 15:14 | Outpatient (BNVA) | payer MEDICARE, SELFPAY | PROVIDERS: Visit Provider Internal Medicine | DX: I25.10 Atherosclerotic heart disease of native coronary artery without angina pectoris (principal); I10 Essential (primary) hypertension; I25.5 Ischemic cardiomyopathy; Z87.891 Personal history of nicotine dependence | CPT/HCPCS: 99213; 99214 ==

== ENCOUNTER → 2022-05-09 13:06 | Outpatient (BNVA) | payer MEDICARE, SELFPAY | PROVIDERS: PCP Nurse Practitioner Family; Visit Provider Internal Medicine | DX: I25.10 Atherosclerotic heart disease of native coronary artery without angina pectoris (principal); I25.5 Ischemic cardiomyopathy; I11.0 Hypertensive heart disease with heart failure; I50.9 Heart failure, unspecified; Z87.891 Personal history of nicotine dependence | CPT/HCPCS: 99213 ==

== ENCOUNTER → 2023-01-09 13:41 | Outpatient (BNVA) | payer MEDICARE, SELFPAY | PROVIDERS: PCP Nurse Practitioner Family; Visit Provider Internal Medicine | DX: I25.10 Atherosclerotic heart disease of native coronary artery without angina pectoris (principal); I25.5 Ischemic cardiomyopathy; Z87.891 Personal history of nicotine dependence; I11.0 Hypertensive heart disease with heart failure; I50.9 Heart failure, unspecified | CPT/HCPCS: 99214 ==

== ENCOUNTER 2023-06-21 10:08 | Outpatient (CLI) | payer MEDICARE, SELFPAY ==
--- NOTE | 2023-06-21 10:17 | MM_ITS ---
WS: [id number] BILATERAL SCREENING DIGITAL TOMOSYNTHESIS MAMMOGRAM WITH CAD HISTORY: SCREENING COMPARISON: 07/01/2020, 11/08/2017 Bilateral CC and MLO views with tomosynthesis and synthetic mammography submitted. Computer aided det ection analyzed. Breast composition: There are scattered areas of fibroglandular density. No suspicious masses, microc alcifications or architectural distortion. Benign scattered calcifications. IMPRESSION: MM/[place] [id number] BI-RADS: 2-Benign FOLLOW UP: 1 Year Follow-up
== END 2023-06-21 10:09 | disposition home or self-care (01) ==
LOC: RAD 10:09
PROVIDERS: PCP Nurse Practitioner Family; Visit Provider Nurse Practitioner Family
DX: Z12.31 Encounter for screening mammogram for malignant neoplasm of breast (principal)
CPT/HCPCS: 77063; 77067

== ENCOUNTER → 2023-10-15 10:15 | Outpatient (BNVA) | payer MEDICARE, SELFPAY | PROVIDERS: PCP Nurse Practitioner Family; Visit Provider Nurse Practitioner Family | DX: I11.0 Hypertensive heart disease with heart failure (principal); I50.9 Heart failure, unspecified; I25.10 Atherosclerotic heart disease of native coronary artery without angina pectoris; Z87.891 Personal history of nicotine dependence | CPT/HCPCS: 99214 ==

== ENCOUNTER 2023-10-16 06:59 | Outpatient (CLI) | payer MEDICARE, SELFPAY ==
--- NOTE | 2023-10-16 07:07 | MR_ITS ---
WS: [id number] MRI LEFT KNEE NONCONTRAST TECHNIQUE: Axial PD, coronal PD fat sat, coronal PD, sagittal PD, and sagittal PD fat-sat images obta ined. CLINICAL INFORMATION: Left knee pain COMPARISON: None. FINDINGS: Distal quadriceps and patella tendons are intact. Hypertrophic patella. Grade 3-4 chondromalacia zacarias lla. Normal medial and lateral patellar retinaculum. Tiny suprapatellar effusion. Increased signal al anca the proximal MCL with fluid and edema along the superficial and deep fibers consistent with grade 1-2 injury. Distal MCL appears intact. Normal lateral collateral ligament. Few small ganglion cysts at the fibular head. Slight peripheral extrusion of the medial and lateral m eniscus. Chronic thinning of the medial and lateral meniscus bilaterally with moderate to severe narr owing in the medial and lateral joint compartments. Grade 3-4 chondromalacia. MR/MR knee LT wo con* [id number] IMPRESSION: 1. 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 2. ACL and PCL appear intact. 3. Chronic thinning of the medial and lateral meniscus with grade 3-4 chondrom alacia in the medial and lateral joint compartments. 4. Grade 1-2 injury involving the MCL with fluid and edema along the superfici al and deep fibers. 5. Grade III chondromalacia patella. Tiny suprapatellar effusion. Outbridge grading: grade IV: full-thickness cartilage loss with underlying bone reactive changes
== END 2023-10-16 07:00 | disposition home or self-care (01) ==
PROVIDERS: PCP Nurse Practitioner Family; Visit Provider Nurse Practitioner Family
DX: M17.12 Unilateral primary osteoarthritis, left knee (principal); S89.82XA Other specified injuries of left lower leg, initial encounter; X58.XXXA Exposure to other specified factors, initial encounter; M22.42 Chondromalacia patellae, left knee
CPT/HCPCS: 73721

== ENCOUNTER 2023-11-24 12:36 | Emergency (ER) | payer MEDICARE, SELFPAY ==
[2023-11-24 12:41] VITALS: BP 154/79; PULSE 89; TEMP 36.7; O2SAT 100; BMI 32.3
--- NOTE | 2023-11-24 12:45 | ECG_ITS ---
[facility] Test Date: 2023-11-24 Pat Name: Dennise Laws Department: Room: Gender: Female [employer]: : 1950 Requested By: Rae Liu Order Number: [id number] Keith MD: Waqas Akins M.D. Measurements Intervals [place] Rate: 92 P: 61 TX: 156 QRS: 37 QRSD: 91 T: 72 QT: 355 QTc: 441 Interpretive Statements SINUS RHYTHM WITH SINUS ARRHYTHMIA LOW QRS VOLTAGE IN PRECORDIAL LEADS [QRS DEFLECTION < 1.0 mV IN CHEST LEADS] MODERATE ST DEPRESSION [0.05+ mV ST DEPRESSION] Compared to ECG 10/19/2019 23:39:26 Low QRS voltage now present ST (T wave) deviation now present T-wave abnormality no longer present Possible ischemia no longer present Electronically Signed On 11-24-2023 20:07:23 CDT by Waqas Akins M.D. [id number]
--- NOTE | 2023-11-24 12:45 | XRR_ITS ---
PROCEDURE INFORMATION: Exam: XR Chest Exam date and time: 11/24/2023 1:11 PM Age: 73 years old Clinical indication: Shortness of breath; Prior surgery; Surgery date: 6+ months; Surgery type: Cardiac stents; Additional info: SOB TECHNIQUE: Imaging protocol: Radiologic exam of the chest. Views: 1 view. COMPARISON: CR XR chest 2V* [id number] 09/23/2020 10:50 AM FINDINGS: Lungs: Unremarkable. No consolidation. Pleural spaces: Unremarkable. No pleural effusion. No pneumothorax. Heart/Mediastinum: Unremarkable. No cardiomegaly. Bones/joints: No acute abnormality. XR/XR chest 1V portable [id number] IMPRESSION: No acute findings.
--- NOTE | 2023-11-24 13:22 | ED_ITS ---
HPI - Nausea/Vomiting/Diarrhea 2 General: Chief complaint: Nausea/Vomiting/Diarrhea Stated complaint: SOB/Nausea/Low BP Time Seen by Provider: 11/24/23 12:51 Source: patient Mode of arrival: ambulatory Limitations: no limitations History of Present Illness: 73-year-old female states that she had r ecently been diagnosed a UTI last week she had been on 5 days of Cipro and has been having severe nausea and vomiting over the last 2 days she has not been able to tolerate her pills or tolerate any p.o. States she has had low-grade fever she also said some slight dyspnea and back pain as well. She denies abdominal pain she denies any chest pain family is concerned she has had a history of heart disease and states she had similar symptoms to this in the past when she had stents placed. States she has had decreased urination over the last 3 days as well Associated nausea: Yes Associated symtoms: Reports fatigue and nausea; Denies chest pain or headache(s) Related Data Home Medications Medication Instructions Recorded Confirmed aspirin 81 mg tablet,delayed 81 mg PO DAILY 04/14/19 10/15/23 release (Adult Low Dose Aspirin) clopidogrel 75 mg tablet 75 mg PO DAILY 04/14/19 10/15/23 nitrofurantoin macrocrystal 50 mg 50 mg PO BEDTIME 04/14/19 10/15/23 capsule (Macrodantin) pantoprazole 40 mg tablet,delayed 40 mg PO DAILY 04/14/19 10/15/23 release carvedilol 6.25 mg tablet 6.25 mg PO BID 10/19/19 10/15/23 nitroglycerin 0.4 mg sublingual 0.4 mg sublingual Q5M PRN chest 12/04/19 10/15/23 tablet pain metformin 500 mg tablet,extended 500 mg PO DAILY 12/13/20 10/15/23 release 24 hr prednisone 20 mg tablet 5 mg PO DAILY 12/13/20 10/15/23 simvastatin 20 mg tablet 20 mg PO DAILY 05/09/22 10/15/23 tirzepatide 2.5 mg/0.5 mL mg SUBCUT 01/09/23 10/15/23 subcutaneous pen injector (Loretta) Previous Rx's Medication Instructions Recorded isosorbide dinitrate 5 mg tablet 5 mg PO BID #180 tabs 09/08/20 losartan 50 mg-hydrochlorothiazide 1 tab PO BID #180 tabs 12/05/20 12.5 mg tablet ondansetron 4 mg disintegrating 4 mg PO Q6H PRN nausea and 11/24/23 tablet vomiting #14 tabs Allergies Allergy/AdvReac Type Severity Reaction Status Date / Time Sulfa (Sulfonamide Allergy UNKNOWN Verified 11/24/23 12:41 Antibiotics) Review of Systems 2 Const: Reports: fever(s) and fatigue; Denies: chills, body aches or change in appetite ENMT: Denies: throat pain or dental pain Card: Denies: chest pain Resp: Reports: dyspnea GI: Reports: nausea and vomiting; Denies: abdominal pain or diarrhea Musc: Reports: back pain; Denies: neck pain Skin/Breast: Denies: rash Neuro: Denies: headache(s) PFSH ED 2 PFSH: Medical History Heart failure, unspecified Chronic obstructive pulmonary disease, unspecified Atherosclerotic heart disease of [place] coronary artery without angina pectoris Type 2 diabetes mellitus without complications Essential (primary) hypertension Ischemic cardiomyopathy Surgical History Stented coronary artery H/O hysterectomy for benign disease Social History Smoking and tobacco/nicotine status: former use of tobacco/nicotine Second hand smoke exposure: No Alcohol intake: never Substance/Drug Use: never Physical Exam 2 Const: COMMON NORMALS: no acute distress, patient oriented x3 and healthy appearing HENMT: COMMON NORMALS: normocephalic and atraumatic HEAD & SCALP: n ormocephalic and atraumatic Neck/C-Spine: COMMON NORMALS: full ROM and supple Chest: COMMONS NORMALS: normal inspection of the chest Resp: COMMON NORMALS: normal respiratory effort, No retractions, No use of accessory muscles and clear to auscultation bilaterally AUSCULTATION: clear to auscultation bilaterally Cardio: COMMON NORMALS: regular rate, regular rhythm and No murmurs present (Cardio) RATE: regular rate RHYTHM: regular rhythm GI: COMMON NORMALS: Normal to inspection, nondistended, normoactive bowel sounds present, Soft to palpation, non-tender and no masses PALPATION: Yes Soft to palpation Extremity: COMMON NORMALS: normal to inspection and full ROM Neuro: COMMON NORMALS: patient oriented x3, moves all extremities and no focal motor deficits Psych: COMMON NORMALS: mental status grossly normal, Normal thought process present and cooperative THOUGHT PROCESS: Normal thought process present Skin: COMMON NORMALS: no rashes or lesions noted and no wounds GENERAL SKIN EXAM: no rashes or lesions noted Course 2 Vital Signs: Vital signs: Vital Signs Temperature 98.1 F 11/24/23 12:41 Pulse Rate 68 11/24/23 14:56 Respiratory Rate 18 11/24/23 13:26 Blood Pressure 182/74 11/24/23 14:56 Pulse Oximetry 95 11/24/23 14:56 Oxygen Delivery Me thod Room Air 11/24/23 14:56 MDM - Nausea/Vomiting/Diarrhea Medical Decision Making Patient presents here been having some vomiting she had a recent UTI has been on Cipro she had some bodyaches and dyspnea her COVID is positive here she not required any oxygen here she is feeling improved after fluids she is able to produce urine no UTI at this time will prescribe her Zofran for home her troponins are normal she stable for discharge follow-up with PCP return if worsening. Medical Records I reviewed the patient's medical records. Lab Data I reviewed the patient's lab results. 11/24/23 13:48 11/24/23 13:48 Radiology Impressions Chest X-Ray 11/24/23 12:45 IMPRESSION: No acute findings. Laboratory Results WBC 6.09 10^3/uL (3.29-11.43) 11/24/23 13:48 RBC 4.16 10^6/uL (3.85-5.65) 11/24/23 13:48 Hgb 12.70 g/dL (11.27-16.99) 11/24/23 13:48 Hct 37.0 % (36-47) 11/24/23 13:48 MCV 88.9 fl (85-98) 11/24/23 13:48 MCH 30.5 pg (27-33) 11/24/23 13:48 MCHC 34.3 g/dL (30-55) 11/24/23 13:48 RDW 12.2 % (12.1-15.1) 11/24/23 13:48 Plt Count 260 10^3/cmm (157-399) 11/24/23 13:48 MPV 9.8 fL (7.4-10.4) 11/24/23 13:48 Neut % (Auto) 48.2 % 11/24/23 13:48 Lymph % (Auto) 42.4 % 11/24/23 13:48 [place] % (Auto) 7.6 % 11/24/23 13:48 Eos % (Auto) 1.0 % 11/24/23 13:48 Baso % (Auto) 0.5 % 11/24/23 13:48 Neut # (Auto) 2.94 10^3/uL (1.8-7.7) 11/24/23 13:48 Lymph # (Auto) 2.6 10^3/uL (0.8-4.8) 11/24/23 13:48 [place] # (Auto) 0.5 10^3/uL (0.2-0.9) 11/24/23 13:48 Eos # (Auto) 0.1 10^3/uL (0.0-0.8) 11/24/23 13:48 Baso # (Auto) 0.0 10^3/uL (0.0-0.1) 11/24/23 13:48 Nucleated RBC % (auto) 0 % 11/24/23 13:48 Nucleated RBCs # 0.0 /100WBC 11/24/23 13:48 Sodium 130 mmol/L (136-145) L 11/24/23 13:48 Potassium 3.9 mmol/L (3.5-5.1) 11/24/23 13:48 Chloride 92 mmol/L (98-107) L 11/24/23 13:48 Carbon Dioxide 25 mmol/L (22-29) 11/24/23 13:48 Anion Gap 16.9 (5-19) 11/24/23 13:48 BUN 18 mg/dL (8-23) 11/24/23 13:48 Creatinine 1.2 mg/dL (0.5-0.9) H 11/24/23 13:48 GFR Calculation Not Reportable 11/24/23 13:48 Glucose 145 mg/dL (65-115) H 11/24/23 13:48 Calculated Osmolality 274 mOsm/kg (285-295) L 11/24/23 13:48 Calcium 9.0 mg/dL (8.5-10.5) 11/24/23 13:48 Magnesium 1.6 mg/dL (1.7-2.3) L 11/24/23 13:48 Total Bilirubin 0.7 mg/dL (0.15-1.2) 11/24/23 13:48 AST 17 U/L (0-32) 11/24/23 13:48 ALT 11 U/L (0-33) 11/24/23 13:48 Alkaline Phosphatase 60 U/L (35-105) 11/24/23 13:48 Troponin T Baseline 14 ng/L (0-10) H 11/24/23 13:48 Troponin T 120 Minute 11.14 ng/L (0-10) H 11/24/23 15:27 Delta Troponin T -2.86 ABS# (0-10) L 11/24/23 15:27 NT-Pro-B Natriuret Pep 282 pg/mL (0-125) H 11/24/23 13:48 Total Protein 6.9 g/dL (6.6-8.7) 11/24/23 13:48 Albumin 4.0 g/dL (3.5-5.2) 11/24/23 13:48 Globulin 2.9 g/dL (1.3-4.6) 11/24/23 13:48 Lipase 29 U/L (13-60) 11/24/23 13:48 Urine Color Yellow (Yellow) 11/24/23 14:54 Urine Appearance Clear (CLEAR) 11/24/23 14:54 Urine pH 6.0 (5-7) 11/24/23 14:54 Ur Specific [place] 1.010 (1.005-1.030) 11/24/23 14:54 Urine Protein Negative (Negative) 11/24/23 14:54 Urine Glucose (UA) Negative (Normal) 11/24/23 14:54 Urine Ketones Negative (Negative) 11/24/23 14:54 Urine Blood Negative (Negative) 11/24/23 14:54 Urine Nitrate Negative (Negative) 11/24/23 14:54 Urine Bilirubin Negative (Negative) 11/24/23 14:54 Urine Urobilinogen 1.0 mg/dL (Negative) 11/24/23 14:54 Ur Leukocyte Esterase 1+ (Negative) A 11/24/23 14:54 Urine RBC 0-2 /hpf (0-2) 11/24/23 14:54 Urine WBC 6-10 /hpf (0-5) 11/24/23 14:54 Ur Squamous Epith Cells 0-5 /hpf (0-5) 11/24/23 14:54 Amorphous Sediment Not Reportable 11/24/23 14:54 Urine Bacteria None seen /hpf (NONE) 11/24/23 14:54 Hyaline Casts 0-4 /lpf H 11/24/23 14:54 SARS-CoV-2 Ag (Rapid) positive (Negative) H 11/24/23 13:49 All radiology interpretation(s) finalized by discharge EKG Data EKG 1: I personally reviewed and interpreted this EKG as follows: EKG interpretation date: 11/24/23 EKG interpretation time: 12:47 Interpretation: nsr hr [address] elevation qrs 91 qtc 405 EKG 2: I personally reviewed and interpreted this EKG as follows: EKG interpretation date: 11/24/23 EKG interpretation time: 14:40 Interpretation: nsr hr [address] elevation qrs 102 qtc 409 Discharge Plan Discharge Patient Disposition: Home Clinical Impression: COVID-19, Vomiting Condition: Stable Prescriptions: New ondansetron 4 mg tablet,disintegrating 4 mg PO Q6H PRN (Reason: nausea and vomiting) Qty: 14 0RF No Action aspirin [Adult Low Dose Aspirin] 81 mg tablet,delayed release (DR/EC) 81 mg PO DAILY clopidogrel 75 mg tablet 75 mg PO DAILY pantoprazole 40 mg tablet,delayed release (DR/EC) 40 mg PO DAILY nitrofurantoin macrocrystal [Macrodantin] 50 mg capsule 50 mg PO BEDTIME Rx Instructions: pt states she takes this medication prednisone 20 mg tablet 5 mg PO DAILY nitroglycerin 0.4 mg tablet, sublingual 0.4 mg sublingual Q5M PRN (Reason: chest pain) Mounjaro 2.5 mg/0.5 mL pen injector SUBCUT simvastatin 20 mg tablet 20 mg PO DAILY isosorbide dinitrate 5 mg tablet 5 mg PO BID Qty: 180 3RF losartan-hydrochlorothiazide 50-12.5 mg tablet 1 tab PO BID Qty: 180 3RF carvedilol 6.25 mg tablet 6.25 mg PO BID metformin 500 mg tablet extended release 24 hr 500 mg PO DAILY Discharge Orders: Discharge ED (Routine); Ordered 11/24/23 Ordered By: Rae Liu Referrals: Dhara Robertson FNP [Primary Care Provider] - 4-7 days Discharge Diet: Advance as tolerated Discharge Activity: Resume usual activity Patient Instructions: Acute Nausea and Vomiting (ED), COVID-19 (Coronavirus Disease 2019) (ED) Coding Level of Care Code ED Lumber Loader for Aracely Cline
[2023-11-24 13:26] VITALS: BP 169/98; PULSE 77; RESP 18; O2SAT 96
[2023-11-24] MEDS: ondansetron 2 mg/ML SDV 2 mL 4 MG IVP (13:39)
[2023-11-24] MEDS: sodium chloride 0.9% 1,000 ML 999 ML IV (13:45)
[2023-11-24 14:00] LABS: Basophils % 0.5 %; Eosinophils # 0.1 10^3/uL (0.0-0.8); Lymphocytes # 2.6 10^3/uL (0.8-4.8); Lymphocytes % 42.4 %; Mean Corpuscular HGB Conc 34.3 g/dL (30-55); Mean Corpuscular Hemoglobin 30.5 pg (27-33); Mean Corpuscular Volume 88.9 fl (85-98); Mean Platelet Volume 9.8 fL (7.4-10.4); Monocytes # 0.5 10^3/uL (0.2-0.9); Monocytes % 7.6 %; Neutrophils # 2.94 10^3/uL (1.8-7.7); Neutrophils % 48.2 %; Nucleated Red Blood Cells % 0 %; Platelet Count 260 10^3/cmm (157-399); Red Blood Count 4.16 10^6/uL (3.85-5.65); Red Cell Distribution Width 12.2 % (12.1-15.1); White Blood Count 6.09 10^3/uL (3.29-11.43)
[2023-11-24 14:18] LABS: SARS Covid-2 Antigen positive (Negative)
[2023-11-24 14:23] LABS: Troponin(5th) Baseline 14 ng/L (0-10)
[2023-11-24 14:28] LABS: Alanine Aminotransferase 11 U/L (0-33); Alkaline Phosphatase 60 U/L (35-105); Anion Gap 16.9 (5-19); Aspartate Amino Transferase 17 U/L (0-32); Blood Urea Nitrogen 18 mg/dL (8-23); Carbon Dioxide 25 mmol/L (22-29); Chloride 92 mmol/L (98-107); Globulin 2.9 g/dL (1.3-4.6); Glucose 145 mg/dL (65-115); Lipase 29 U/L (13-60); Magnesium 1.6 mg/dL (1.7-2.3); NT Pro B Type Natriuretic Pept 282 pg/mL (0-125); Osmolality Calculated 274 mOsm/kg (285-295); Potassium 3.9 mmol/L (3.5-5.1); Sodium 130 mmol/L (136-145); Total Bilirubin 0.7 mg/dL (0.15-1.2); Total Protein 6.9 g/dL (6.6-8.7)
[2023-11-24 14:30] LABS: Creatinine Clr Calc Pharmacy 48.7849
--- NOTE | 2023-11-24 14:50 | ECG_ITS ---
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 Measurements Intervals [place] Rate: 74 P: 49 KS: 163 QRS: 40 QRSD: 102 T: 51 QT: 382 QTc: 424 Interpretive Statements SINUS RHYTHM WITH SINUS ARRHYTHMIA Compared to ECG 10/19/2019 23:39:26 T-wave abnormality no longer present Possible ischemia no longer present Electronically Signed On 11-24-2023 20:10:40 CDT by Waqas Akins M.D. [id number]
[2023-11-24 14:56] VITALS: BP 182/74; PULSE 68; O2SAT 95
[2023-11-24 14:59] LABS: Charge for UA Resulting for Rev
[2023-11-24 15:01] LABS: Bilirubin Urine Negative (Negative); Blood Urine Negative (Negative); Glucose Urine UA Negative (Normal); Ketones Urine Negative (Negative); Leukocyte Esterase Urine 1+ (Negative); Nitrate Urine Negative (Negative); Protein Urine Negative (Negative); Urine Appearance Clear (CLEAR); Urine Color Yellow (Yellow)
[2023-11-24 15:06] LABS: Bacteria Urine None Seen /hpf; Hyaline Casts Urine 0-4 /lpf; RBC Urine 0-2 /hpf (0-2); Squamous Epithelial Cell Urine 0-5 /hpf (0-5)
[2023-11-24 15:58] LABS: Troponin 5 2HR 11.14 ng/L (0-10)
[2023-11-24 16:15] LABS: Troponin 5 2HR Delta -2.86 ABS# (0-10)
[2023-11-24 17:25] VITALS: BP 182/74; PULSE 68; RESP 18; TEMP 36.7; O2SAT 95
== END 2023-11-24 17:29 | disposition home or self-care (01) ==
PROVIDERS: Emergency Provider Emergency Medicine; PCP Nurse Practitioner Family
DX: U07.1 COVID-19 (principal); R11.11 Vomiting without nausea; Z79.02 Long term (current) use of antithrombotics/antiplatelets; Z79.82 Long term (current) use of aspirin; Z79.84 Long term (current) use of oral hypoglycemic drugs; Z79.85 Long-term (current) use of injectable non-insulin antidiabetic drugs; J44.9 Chronic obstructive pulmonary disease, unspecified; I25.10 Atherosclerotic heart disease of native coronary artery without angina pectoris; E11.9 Type 2 diabetes mellitus without complications; I25.5 Ischemic cardiomyopathy; I11.0 Hypertensive heart disease with heart failure; I50.9 Heart failure, unspecified; Z87.891 Personal history of nicotine dependence
CPT/HCPCS: 36415; 71045; 80053; 81003; 81015; 83690; 83735; 83880; 84484; 85025; 87426; 93005; 96374; 99285; J2405; J7030

== ENCOUNTER 2024-06-19 13:01 | Outpatient (CLI) | payer MEDICARE, SELFPAY ==
--- NOTE | 2024-06-19 13:16 | CT_ITS ---
WS: [id number] LDCT LUNG CANCER SCREENING TECHNIQUE: Noncontrast CT of the chest with coronal and sagittal reformatted images. CLINICAL INFORMATION: SCREENING COMPARISON: None. DLP: 82.60 mGy.cm DIvol: Mean CTDIvol: 1.70 (mGy) All CT scans at [facility] use at least one of these dose optimization techniques: automated exposure control; mA and/or kV adjustment per patient size (includes targeted exams where dose is matched to clinical indication); or iterative reconstruction. FINDINGS: Multiple scattered noncalcified nodules the largest in the upper lobes measuring up to 6 to 7 mm. Most of these appear well-circumscribed but are technically indeterminant. 8 mm nodule or area of parenchymal scarring RIGHT upper lobe anteriorly. Two 7 mm noncalcified nodules in the LEFT upper lobe. Numerous additional smaller nodules. Notable 5 mm LEFT hilar nodule. Most of these nodules were present and similar in appearance compared to 2017. A few or are new or have increased in size. Recommend 6-month follow-up. Aortic calcification. Coronary calcification. Tiny thyroid nodules. No mediastinal or hilar lymphadenopathy. No axillary lymphadenopathy. Adrenal glands are normal. Atrophic RIGHT kidney. Cholecystectomy clips. Tiny esophageal hiatal hernia. Mild thoracic curve. Mild thoracic kyphosis. CT/CT lung screening [id number] IMPRESSION: LUNG-RADS: 3-Probably Benign FOLLOW UP: 6 Month LDCT
== END 2024-06-19 13:02 | disposition home or self-care (01) ==
LOC: RAD 13:03
PROVIDERS: PCP Nurse Practitioner Family; Visit Provider Nurse Practitioner Family
DX: Z12.2 Encounter for screening for malignant neoplasm of respiratory organs (principal); Z87.891 Personal history of nicotine dependence; R91.8 Other nonspecific abnormal finding of lung field; I70.0 Atherosclerosis of aorta; I25.10 Atherosclerotic heart disease of native coronary artery without angina pectoris; N26.1 Atrophy of kidney (terminal); Z90.49 Acquired absence of other specified parts of digestive tract; M43.8X4 Other specified deforming dorsopathies, thoracic region; M40.294 Other kyphosis, thoracic region
CPT/HCPCS: 71271

== ENCOUNTER 2024-07-13 09:39 | Outpatient (CLI) | payer MEDICARE, SELFPAY ==
--- NOTE | 2024-07-13 09:51 | USCV_ITS ---
Dennise Laws Age: 74 Gender: F : 1950 Exam Date: 07/13/2024 09:58 Ordering Phys: Dhara Robertson WET MIXER Technologist: MARISSA [place] [facility] [place]: SoB BP: 119 / 81 HR: 82 Rhythm: Sinus Technical Quality: MEASUREMENTS (Male / Female) Normal Values 2D ECHO LV Diastolic Diameter PLAX 4.9 cm 4.2 - 5.9 / 3.9 - 5.3 cm IVS Diastolic Thickness 1.1 cm 0.6 - 1.0 / 0.6 - 0.9 cm IVS Systolic Thickness 1.5 cm LVPW Diastolic Thickness 1.1 cm 0.6 - 1.0 / 0.6 - 0.9 cm LVPW Systolic Thickness 1.4 cm LVOT Diameter 1.9 cm LV Ejection Fraction 2D Teich 61.1 % LV Ejection Fraction MOD 4C 62.7 % LV Ejection Fraction MOD 2C 70.1 % LV Ejection Fraction 2C AL 71.9 % LA Diameter 3.8 cm RA Systolic Volume 4C AL 23.7 ml RA Systolic Volume 4C MOD 20.9 ml LA Sys Volume AL 43.3 cm cubed LA Sys Volume Index AL 20.8 cm cubed/m squared Aorta at Sinotubular Diameter 2.7 cm IVC Diameter 1.8 cm M-MODE LA Ao Ratio MM 1.6 AV Cusp Separation MM 1.1 cm DOPPLER AV Peak Velocity 85.0 cm/s LVOT Peak Velocity 87.0 cm/s AV Area Cont Eq vti 2.8 cm squared AV Area Cont Eq pk 2.9 cm squared MV Peak Velocity 100.0 cm/s MV Area PHT 5.9 cm squared Mitral E to A Ratio 0.8 TR Peak Velocity 163.0 cm/s TR Peak Gradient 10.6 mmHg TV Peak E Velocity 58.0 cm/s PV Peak Velocity 82.0 cm/s FINDINGS Left Ventricle Normal left ventricular size and systolic function, EF 63%. No regional wall motion abnormalities. Grade I/IV diastolic dysfunction (abnormal relaxation filling pattern), normal to mildly elevated filling pressures. Mild left ventricular hypertrophy. Right Ventricle The right ventricle is normal in size and function. Right Atrium The right atrium is normal in size. Left Atrium Mildly increased left atrial size. Mitral Valve Mild mitral annular calcification. Aortic Valve No gross abnormalities noted Tricuspid Valve No gross abnormalities noted Pulmonic Valve Pulmonic valve not well visualized. Pericardium Normal pericardium without effusion. Aorta Normal ascending aorta dimension. IVC Normal inferior vena cava. CONCLUSIONS Normal left ventricular size and systolic function, EF 63%. No regional wall motion abnormalities. Grade I/IV diastolic dysfunction (abnormal relaxation filling pattern), normal to mildly elevated filling pressures. Mild left ventricular hypertrophy. Mildly increased left atrial size. Mild mitral annular calcification. There is no pericardial effusion. There are no intracardiac masses. Compared to the study from 05/19/2016, there is significant improvement of the LV ejection fraction from 41% to 63% Dr Murtaza Quispe MD [facility] (Electronically Signed) Final Date: 14 July 2024 20:13 S
== END 2024-07-13 09:40 | disposition home or self-care (01) ==
LOC: RAD 09:41
PROVIDERS: PCP Nurse Practitioner Family; Visit Provider Nurse Practitioner Family
DX: R06.02 Shortness of breath (principal); R29.898 Other symptoms and signs involving the musculoskeletal system; R93.1 Abnormal findings on diagnostic imaging of heart and coronary circulation; I51.7 Cardiomegaly; I34.81 Nonrheumatic mitral (valve) annulus calcification
CPT/HCPCS: 93306

== ENCOUNTER → 2024-07-15 14:28 | Outpatient (BNVA) | payer MEDICARE, SELFPAY | PROVIDERS: PCP Nurse Practitioner Family; Visit Provider Internal Medicine | DX: R07.89 Other chest pain (principal); R06.02 Shortness of breath; I11.0 Hypertensive heart disease with heart failure; I50.9 Heart failure, unspecified; I25.10 Atherosclerotic heart disease of native coronary artery without angina pectoris; I25.5 Ischemic cardiomyopathy; Z87.891 Personal history of nicotine dependence; Z95.5 Presence of coronary angioplasty implant and graft | CPT/HCPCS: 99214 ==

== ENCOUNTER 2024-07-31 08:55 | Outpatient (CLI) | payer MEDICARE, SELFPAY ==
[2024-07-31 09:28] VITALS: BMI 32.3
--- NOTE | 2024-07-31 09:30 | ECG_ITS ---
[facility] Test Date: 2024-07-31 Pat Name: Dennise Laws Department: Room: Gender: Female Reading Teacher: : 1950 Requested By: Waqas Akins Order Number: [id number] Keith MD: Murtaza Quispe M.D. Interpretive Statements Lung unchanged pre/post procedure; Intraprocedure shortess of breath; Symptoms resoled by discharge PROCEDURE: At the baseline, the EKG revealed normal sinus rhythm with occasional PACs. Poor R wave progression. Diffused nonspecific ST-T changes. The baseline heart was 74 bpm with a blood pressue of 149/65 mm of Hg Lexiscan was infused over a period of 20 seconds. A total of 0.4 milligrams of Lexiscan was infused. The stress phase was continued for a total of 5 minutes. Heart rate at the end of the stress phase was 103 bpm with a blood pressure 167/71 mm of Hg. The EKG at the peak infusion revealed no significant changes. Sestamibi was injected 20 seconds after the Lexiscan infusion. Heart rate at the end of the recovery phase was 93 bpm with a blood pressure of 150/68 mm of Hg. CONCLUSION: 1. No significant EKG changes with the LexiScan infusion 2. No LexiScan induced chest pain or cardiac arrhythmia 3. Normal blood pressure and heart rate response 4. Sestamibi/sestamibi perfusion scan pending; see separate report. Electronically Signed On 08-02-2024 13:03:53 CDT by Murtaza Quispe M.D. [email or web address] [id number]
--- NOTE | 2024-07-31 09:30 | NMCV_ITS ---
NM tony perf SPECT r/s* [id number] Dennise Laws Age: 74 Gender: F : 1950 Exam Date: 07/31/2024 10:06 Ordering Phys: Waqas Akins M.D ([email or web address]) Technologist: JAYMIE Connors Exam Location: [facility] Indications: cp STRESS TEST [facility] IMAGE PROTOCOL Rest/Stress 1 Lexiscan Day Radiopharmaceutical Dose (mCi) Administration Site Administered by Rest: Tc-99m 10.7 IV JAYMIE Connors Sestamibi Stress:Tc-99m 33 IV Taisha Camejo, BALLISTICS TEACHER Sestamibi Rest: 31-Jul-2024 60 Discovery 630 Stress: 31-Jul-2024 30 Discovery 630 0.4mg Lexiscan. Images obtained in supine and prone position. SPECT RESULTS Technical Quality: Good Raw Data Analysis: Normal Image Corrections: No attenuation or motion correction applied Summed Stress Score: 3 Summed Rest Score: 8 Summed Difference Score: 0 PERFUSION FINDINGS There is a small area of fixed perfusion defect seen in the apical, apical lateral and apical inferior goldstein. This is consistent with small area of prior infarct seen in these territories. No evidence of ischemia. FUNCTIONAL RESULTS (calculated via Gated SPECT) Stress Image LV EF (%): 73 Stress EDV (mL):91 TID: 1.02 Stress ESV (mL):25 FUNCTIONAL FINDINGS: There is normal left ventricular systolic function. IMPRESSIONS 1. Abnormal myocardial perfusion imaging with small sized area of prior infarct seen in apical, apical lateral and apical inferior goldstein. 2. LV systolic function is normal Waqas Akins MD (Electronically Signed) Final Date: 04 August 2024 09:04 S
[2024-07-31] MEDS: regadenoson 0.4 Mg/5 ml Syringe IVP (10:30)
[2024-07-31 10:43] VITALS: BP 150/68; PULSE 93
== END 2024-07-31 08:56 | disposition home or self-care (01) ==
LOC: CDL 08:57
PROVIDERS: Family Provider Internal Medicine Cardiovascular Disease; PCP Nurse Practitioner Family; Visit Provider Internal Medicine
DX: R07.9 Chest pain, unspecified (principal); R06.02 Shortness of breath; R93.1 Abnormal findings on diagnostic imaging of heart and coronary circulation
CPT/HCPCS: 36415; 78452; 93017; 96374; A9500; J2785

== ENCOUNTER 2024-12-07 21:51 | Inpatient (IN) | payer MEDICARE, SELFPAY ==
--- NOTE | 2024-12-07 21:54 | XRR_ITS ---
PROCEDURE INFORMATION: Exam: XR Chest Exam date and time: 12/07/2024 11:01 PM Age: 74 years old Clinical indication: Cough; Prior surgery; Surgery date: 6+ months; Surgery type: Coronary stents; Additional info: Dyspnea/cough TECHNIQUE: Imaging protocol: Radiologic exam of the chest. Views: 1 view. COMPARISON: CT lung screening [id number] 06/19/2024 1:16 PM FINDINGS: Lungs: Unremarkable. No consolidation. Pleural spaces: Unremarkable. No pleural effusion. No pneumothorax. Heart/Mediastinum: Unremarkable. No cardiomegaly. Vasculature: Advanced diffuse vascular calcification noted. Bones/joints: Unremarkable. XR/XR chest 1V portable [id number] IMPRESSION: No acute findings.
[2024-12-07 21:57] VITALS: BP 194/105; PULSE 99; RESP 16; TEMP 36.7; O2SAT 98; BMI 31.4
--- NOTE | 2024-12-07 22:00 | ECG_ITS ---
[facility] Pat Name: Dennise Laws Department: Room: Gender: Female Arabic Linguist: : 1950 Requested By: Kenneth Alonzo Order Number: [id number] Keith MD: Murtaza Quispe M.D. Measurements Intervals [place] Rate: 99 P: 56 MD: 157 QRS: -5 QRSD: 98 T: 65 QT: 325 QTc: 418 Interpretive Statements SINUS RHYTHM WITH SINUS ARRHYTHMIA POSSIBLE ANTERIOR MYOCARDIAL INFARCTION , PROBABLY OLD [30 ms Q WAVE IN V3/V4, OR R < 0.2 mV IN V4] Compared to ECG 11/24/2023 14:40:57 Myocardial infarct finding now present Electronically Signed On 12-08-2024 21:41:17 CDT by Murtaza Quispe M.D. [email or web address] [id number]
--- NOTE | 2024-12-07 22:53 | ED_ITS ---
HPI - SOB/Dyspnea 2 General: Chief Complaint: Shortness of Breath/Dyspnea Stated Complaint: High BP, CHEST PAIN Time Seen by Provider: 12/07/24 22:29 History of Present Illness: HPI Narrative: 72-year-old female presents emergency ro om she has noted what she describes as generalized weakness for the last several weeks blood pressure has been elevated at home tonight she had a pressure of 230 systolic and quite concerned presented to the emergency room she is also had dizziness. She is true vertiginous like symptoms but she does notice anything that seems to trigger it or relieve it. She is currently on several antihypertensives losartan hydrochlorothiazide Imdur carvedilol. She has shortness of breath but has not had any chest pain. She had a cardiac stress test in July of this year that showed areas of fixed perfusion defects but no areas of reversible ischemia. Associated symptoms: Deny abdominal pain, chest pain or fever(s) Related Data Home Medications ?Medication ?Instructions ?Recorded ?Confirmed aspirin 81 mg tablet,delayed 81 mg PO DAILY 04/14/19 0 07/15/24 release (Adult Low Dose Aspirin) clopidogrel 75 mg tablet 75 mg PO DAILY 04/14/1912/31 nitrofurantoin macrocrystal 50 mg 50 mg PO BEDTIME 10/2507/15/24 capsule (Macrodantin) pantoprazole 40 mg tablet,delayed 40 mg PO DAILY 04/1407/15/24 release carvedilol 6.25 mg tablet 6.25 mg PO BID 10/19/1912/31 nitroglycerin 0.4 mg sublingual 0.4 mg sublingual Q5M PRN chest 12/04/19 07/15/24 tablet pain metformin 500 mg tablet,extended 500 mg PO DAILY 12/1307/15/24 release 24 hr prednisone 20 mg tablet 5 mg PO DAILY 12/13/2007/15 simvastatin 20 mg tablet 20 mg PO DAILY 05/09/2212/31 tirzepatide 2.5 mg/0.5 mL mg SUBCUT 01/09/23 07/15/24 subcutaneous pen injector (Loretta) potassium 99 mg tablet mg PO 07/15/24 07/15/24 Previous Rx's ?Medication ?Instructions ?Recorded isosorbide dinitrate 5 mg tablet 5 mg PO BID #180 tabs 09/08/20 losartan 50 mg-hydrochlorothiazide 1 tab PO BID #180 t abs 12/05/20 12.5 mg tablet ondansetron 4 mg disintegrating 4 mg PO Q6H PRN nausea and 11/24/23 tablet vomiting #14 tabs Allergies Allergy/AdvReac Type Severity Reaction Status Date / Time Sulfa (Sulfonamide Allergy UNKNOWN Verified 07/15/24 15:22 Antibiotics) Review of Systems 2 Const: Denies: fever(s) or chills Card: Denies: chest pain Resp: Denies: dyspnea GI: Denies: abdominal pain : Denies: dysuria, urinary frequency or urinary urgency Musc: Denies: neck pain or back pain Skin/Breast: Denies: rash PFSH ED 2 PFSH: Medical History Heart failure, unspecified Chronic obstructive pulmonary disease, unspecified Atherosclerotic heart disease of [place] coronary artery without angina pectoris Type 2 diabetes mellitus without complications Essential (primary) hypertension Ischemic cardiomyopathy Surgical History Stented coronary artery H/O hysterectomy for benign disease Social History Smoking and tobacco/nicotine status: former use of tobacco/nicotine Second hand smoke exposure: No Alcohol intake: never Substance/Drug Use: never Physical Exam 2 Const: GENERAL APPEARANCE: cooperative ORIENTATION/CONSCIOUSNESS: Yes awake, Yes oriented to person, Yes oriented to place and Yes oriented to time HENMT: COMMON NORMALS: normocephalic, atraumatic and hearing grossly normal bilaterally HEAD & SCALP: normocephalic and atraumatic Resp: COMMON NORMALS: normal respiratory effort, No retractions, No use of accessory muscles and clear to auscultation bilaterally AUSCULTATION: clear to auscultation bilaterally Cardio: COMMON NORMALS: regular rate, regular rhythm and No murmurs present (Cardio) RATE: regular rate RHYTHM: regular rhythm GI: COMMON NORMALS: Soft to palpation and No hepatosplenomegaly present A USCULTATION: Yes normoactive bowel sounds PALPATION: Yes Soft to palpation, No Tenderness to palpation present (GI), No Guarding due to palpation present (GI) and Yes No hepatosplenomegaly present Extremity: COMMON NORMALS: normal to inspection, capillary refill normal, no clubbing, cyanosis or edema, no calf tenderness and no pedal edema Neuro: SENSORIUM/ORIENTATION: Yes oriented to person, Yes oriented to place and Yes oriented to time Skin: COMMON NORMALS: no rashes or lesions noted GENERAL SKIN EXAM: no rashes or lesions noted Course 2 Vital Signs: Vital signs: Vital Signs Temperature 97.7 F 12/08/24 04:00 Pulse Rate 94 12/08/24 04:00 Respiratory Rate 25 H 12/08/24 04:00 Blood Pressure 144/95 12/08/24 04:00 Pulse Oximetry 100 12/08/24 04:00 Oxygen Delivery Me thod Room Air 12/08/24 04:00 MDM - SOB/Dyspnea Medical Decision Making Positive delta [place] of +172 patient is not currently having any symptoms not had any further shortness of breath. EKG did not show any acute ST elevation she is symptom-free at this time. She had a stress test earlier this year that was read as negative for acute ischemia. It did show areas of prior infarct. Will admit initiated heparin drip topical nitro half-inch. Discussed with patient and family. Discussed with hospitalist they will contact television service engineer in the morning for consultation Medical Records IMPRESSIONS 1. Abnormal myocardial perfusion imaging with small sized area of prior infarct seen in apical, apical lateral and apical inferior goldstein. 2. LV systolic function is normal Waqas Akins MD Lab Data I reviewed the patient's lab results. 12/08/24 04:32 12/08/24 04:32 Labs/Radiology: Radiology Impressions Chest X-Ray 12/07/24 21:54 IMPRESSION: No acute findings. Head CT 12/07/24 23:08 IMPRESSION: 1. No acute intracranial abnormality. 2. Mild age-related changes. A few other chronic/incidental findings above. Laboratory Results WBC 9.01 10^3/uL (3.29-11.43) 12/07/24 23:24 RBC 4.15 10^6/uL (3.85-5.65) 12/07/24 23:24 Hgb 12.60 g/dL (11.27-16.99) 12/07/24 23:24 Hct 36.6 % (36-47) 12/07/24 23:24 MCV 88.2 fl (85-98) 12/07/24 23:24 MCH 30.4 pg (27-33) 12/07/24 23: MCHC 34.4 g/dL (30-55) 12/07/24 23:24 RDW 12.9 % (12.1-15.1) 12/07/24 23:24 Plt Count 313 10^3/cmm (157-399) 12/07/24 23:24 MPV 9.1 fL (7.4-10.4) 12/07/24 23:24 Neut % (Auto) 50.5 % 12/07/24 23:24 Lymph % (Auto) 40.8 % 12/07/24 23:24 [place] % (Auto) 7.2 % 12/07/24 23: Eos % (Auto) 0.9 % 12/07/24 23: Baso % (Auto) 0.4 % 12/07/24:24 Neut # (Auto) 4.54 10^3/uL (1.8-7.7) 12/07/24 23:24 Lymph # (Auto) 3.7 10^3/uL (0.8-4.8) 12/07/24 23:24 [place] # (Auto) 0.7 10^3/uL (0.2-0.9) 12/07/24 23:24 Eos # (Auto) 0.1 10^3/uL (0.0-0.8) 12/07/24 23: Baso # (Auto) 0.0 10^3/uL (0.0-0.1) 12/07/24 23:24 Nucleated RBC % (auto) 0 % 12/07/24: Nucleated RBCs # 0.0 /100WBC 12/07/24 23:24 D-Dimer 0.36 ug/mLFEU (0-0.59) 12/07/24 23:24 Sodium 131 mmol/L (136-145) L 12/07/24 23:24 Potassium 3.9 mmol/L (3.5-5.1) 12/07/24 23:24 Chloride 96 mmol/L (98-107) L 12/07/24 23:24 Carbon Dioxide 22 mmol/L (22-29) 12/07/24 23:24 Anion Gap 16.9 (5-19) 12/07/24 23:24 BUN 12 mg/dL (8-23) 12/07/24 23:24 Creatinine 0.8 mg/dL (0.5-0.9) 12/07/24 23:24 GFR Calculation Not Reportable 12/07/24 23:24 Glucose 137 mg/dL (65-115) H 12/07/24 23:24 Calculated Osmolality 274 mOsm/kg (285-295) L 12/07/24 23:24 Calcium 8.8 mg/dL (8.5-10.5) 12/07/24 23:24 Total Bilirubin 0.5 mg/dL (0.15-1.2) 12/07/24 23:24 AST 18 U/L (0-32) 12/07/24 23:24 ALT 14 U/L (0-33) 12/07/24 23:24 Alkaline Phosphatase 78 U/L (35-105) 12/07/24 23:24 Troponin T Baseline 59 ng/L (0-10) H 12/07/24 23:24 Troponin T 120 Minute 231.4 ng/L (0-10) H 12/07/24 01:16 Delta Troponin T 172.4 ABS# (0-10) H* 12/07/24 01:16 Total Protein 6.4 g/dL (6.6-8.7) L 12/07/24 23:24 Albumin 4.1 g/dL (3.5-5.2) 12/07/24 23:24 Globulin 2.3 g/dL (1.3-4.6) 12/07/24 23:24 All radiology interpretation(s) finalized by discharge EKG Data EKG 1: Interpretation: 12/08/1999 2520 2200. Normal sinus rhythm with a rate of 99. SC interval 157 QTc 418. Nondiagnostic Q waves in V3 and 4. EKG compared to 11/24/2023 EKG 2: Interpretation: EKG 12/07/2024 2355 sinus arrhythmia with a rate of 97. Normal 148 QTc 426. T waves inverted on this EKG compared to previous EKG done earlier today. No acute ST elevation Discharge Plan Discharge Patient Disposition: Admitted As Inpatient Admit Provider: Mio,Patience C Clinical Impression: Non-ST elevation PA (NSTEMI), Ischemic cardiomyopathy, Type 2 diabetes mellitus without complications Condition: Stable Coding Level of Care Code ED Scientific Artist for Aracely Cline
[2024-12-07 23:01] VITALS: BP 144/100; PULSE 103; RESP 19; O2SAT 99
--- NOTE | 2024-12-07 23:08 | CTR_ITS ---
PROCEDURE INFORMATION: Exam: CT Head Without Contrast Exam date and time: 12/07/2024 11:12 PM Age: 74 years old Clinical indication: Other: Vertigo, high BP; Additional info: Vertigo elevated blood pressure TECHNIQUE: Imaging protocol: Computed tomography of the head without contrast. Radiation optimization: All CT scans at this facility use at least one of these dose optimization techniques: automated exposure control; mA and/or kV adjustment per patient size (includes targeted exams where dose is matched to clinical indication); or iterative reconstruction. COMPARISON: No relevant prior studies available. RADIATION DOSE METRICS: Total DLP (mGy-cm): 1123.08 FINDINGS: Brain: No focal hemorrhage or midline shift is identified. The ventricles and parenchyma show mild atrophy and chronic bicerebral white matter ischemic change. Minimal bilateral globus pallidus calcification. Cerebral ventricles: No ventriculomegaly or evidence of hydrocephalus. Paranasal sinuses: The partially assessed sinuses are grossly clear. Mastoid air cells: Visualized mastoid air cells are well aerated. Bones: No displaced skull fracture is noted. Soft tissues: Unremarkable. Vasculature: Diffuse vascular calcifications are present. CT/CT head wo con* [id number] IMPRESSION: 1. No acute intracranial abnormality. 2. Mild age-related changes. A few other chronic/incidental findings above.
[2024-12-07 23:29] LABS: Hematocrit 36.6 % (36-47); Hemoglobin 12.60 g/dL (11.27-16.99); Mean Corpuscular HGB Conc 34.4 g/dL (30-55); Mean Corpuscular Hemoglobin 30.4 pg (27-33); Mean Corpuscular Volume 88.2 fl (85-98); Nucleated Red Blood Cells % 0 %; Platelet Count 313 10^3/cmm (157-399); Red Blood Count 4.15 10^6/uL (3.85-5.65); White Blood Count 9.01 10^3/uL (3.29-11.43)
[2024-12-07 23:30] VITALS: BP 145/111; PULSE 88; RESP 15; O2SAT 98
[2024-12-07 23:35] VITALS: BP 135/93; PULSE 115; RESP 21; O2SAT 98
[2024-12-07 23:48] LABS: Troponin(5th) Baseline 59 ng/L (0-10)
[2024-12-07 23:54] LABS: Alanine Aminotransferase 14 U/L (0-33); Albumin Level 4.1 g/dL (3.5-5.2); Alkaline Phosphatase 78 U/L (35-105); Anion Gap 16.9 (5-19); Aspartate Amino Transferase 18 U/L (0-32); Blood Urea Nitrogen 12 mg/dL (8-23); Calcium 8.8 mg/dL (8.5-10.5); Carbon Dioxide 22 mmol/L (22-29); Chloride 96 mmol/L (98-107); Creatinine Clr Calc Pharmacy 71.2068; Globulin 2.3 g/dL (1.3-4.6); Glucose 137 mg/dL (65-115); Osmolality Calculated 274 mOsm/kg (285-295); Potassium 3.9 mmol/L (3.5-5.1); Sodium 131 mmol/L (136-145); Total Protein 6.4 g/dL (6.6-8.7)
--- NOTE | 2024-12-07 23:54 | ECG_ITS ---
[facility] Test Date: 2024-12-07 Pat Name: Dennise Laws Department: Room: Gender: Female Uke Driver: : 1950 Requested By: Kenneth Alonzo Order Number: [id number] Keith MD: Murtaza Quispe M.D. Measurements Intervals [place] Rate: 97 P: 48 MO: 148 QRS: -23 QRSD: 94 T: 130 QT: 335 QTc: 426 Interpretive Statements SINUS RHYTHM WITH SINUS ARRHYTHMIA POSSIBLE ANTERIOR MYOCARDIAL INFARCTION , PROBABLY OLD [30 ms Q WAVE IN V3/V4, OR R < 0.2 mV IN V4] MODERATE T-WAVE ABNORMALITY, CONSIDER LATERAL ISCHEMIA [-0.1+ mV T-WAVE IN I/aVL/V5/V6] Compared to ECG 12/07/2024 22:00:47 T-wave abnormality now present Possible ischemia now present Myocardial infarct finding still present Electronically Signed On 12-08-2024 21:55:34 CDT by Murtaza Quispe M.D. [id number] [id number]
[2024-12-08] VITALS (18 sets, daily range): BP systolic 97–163; BP diastolic 57–98; PULSE 65–108; RESP 14–27; TEMP 36.5–36.7; O2SAT 95–100
[2024-12-08 01:57] LABS: Troponin 5 2HR 231.4 ng/L (0-10); Troponin 5 2HR Delta 172.4 ABS# (0-10)
[2024-12-08] MEDS: nitroglycerin 1 gm/inch oint Pkt 0.5 INCH TOPICAL (02:35)
[2024-12-08] MEDS: heparin 5,000 unit/mL INJ 1 mL IVP (02:38)
[2024-12-08] MEDS: heparin drip 25,000 UNIT/500 ML PREMIX 25 UNIT IV (02:54)
--- NOTE | 2024-12-08 03:54 | ECG_ITS ---
[facility] [employer] Test Date: 2024-12-08 Pat Name: Dennise Laws Department: Room: 105 Gender: Female Patternmaker Grader: : 1950 Requested By: Kenneth Alonzo Order Number: [id number] Keith MD: Murtaza Quispe M.D. Measurements Intervals [place] Rate: 92 P: 52 MN: 153 QRS: -41 QRSD: 91 T: 176 QT: 320 QTc: 397 Interpretive Statements SINUS RHYTHM WITH MARKED SINUS ARRHYTHMIA LEFT AXIS DEVIATION [QRS AXIS < -30] LOW QRS VOLTAGE IN EXTREMITY LEADS [QRS DEFLECTION < 0.5 mV IN LIMB LEADS] POSSIBLE ANTERIOR MYOCARDIAL INFARCTION , OF INDETERMINATE AGE [30 ms Q WAVE IN V3/V4, OR R < 0.2 mV IN V4] Compared to ECG 12/07/2024 23:55:41 Left-axis deviation now present Low QRS voltage now present T-wave abnormality no longer present Possible ischemia no longer present Myocardial infarct finding still present Electronically Signed On 12-08-2024 21:54:29 CDT by Murtaza Quispe M.D. [email or web address]
--- NOTE | 2024-12-08 04:41 | P.HP_ITS ---
Providers/Chief Complaint 2 Admitting Physician: Cathleen Lieberman MD--- patient was seen and evaluated after 12 midnight Primary Care Provider: CHACE Murillo Chief Complaint: High BP, CHEST PAIN History of Present Illness Dennise Laws is a 74 year old female with medical history significant for cardiovascular heart disease who had had chest pain in July and was stressed and at that time stress test was negative. Patient now is coming in with shortness of breath that have been ongoing for the past 1 week. Patient also has been having hypertension associated with this. Troponin obtained showed a level of 231.4 and a delta that is remarkably elevated at 172.4. Patient was immediately started on heparin drip with cardiology consultation. D-dimer was done and it was negative. Cardiology will be seeing this patient. I have seen and evaluated patient patient seems very comfortable and doing much better. Review of Systems 2 Narrative: System review upon 10 organ review were significant for cardiorespiratory system Medications/Allergies Home Medications ?Medication ?Instructions ?Recorded ?Confirmed ?Last Taken ?Type aspirin 81 mg tablet,delayed 81 mg PO DAILY 04/14/19 0 07/15/24 10/19/19 History release (Adult Low Dose Aspirin) clopidogrel 75 mg tablet 75 mg PO DAILY 04/14/19 04/0 12/3110/19/19 History nitrofurantoin macrocrystal 50 mg 50 mg PO BEDTIME 10/2507/15/24 10/18/19 History capsule (Macrodantin) pantoprazole 40 mg tablet,delayed 40 mg PO DAILY 04/1407/15/24 10/19/19 History release carvedilol 6.25 mg tablet 6.25 mg PO BID 10/19/19 04/0 12/3110/19/19 History nitroglycerin 0.4 mg sublingual 0.4 mg sublingual Q5M PRN chest 12/04/19 07/15/24 Unknown History tablet pain isosorbide dinitrate 5 mg tablet 5 mg PO BID #180 tabs 09/08/20 07/15/24 Unknown Rx losartan 50 mg-hydrochlorothiazide 1 tab PO BID #180 t abs 12/05/20 07/15/24 Unknown Rx 12.5 mg tablet metformin 500 mg tablet,extended 500 mg PO DAILY 12/1307/15/24 Unknown History release 24 hr prednisone 20 mg tablet 5 mg PO DAILY 12/13/2007/15 Unknown History simvastatin 20 mg tablet 20 mg PO DAILY 05/09/22 04/12/31 Unknown History tirzepatide 2.5 mg/0.5 mL mg SUBCUT 01/09/23 07/15/24 Unknown History subcutaneous pen injector (Loretta) ondansetron 4 mg disintegrating 4 mg PO Q6H PRN nausea and 11/24/23 07/15/24 Unknown Rx tablet vomiting #14 tabs potassium 99 mg tablet mg PO 07/15/24 07/15/24 Unkn own History Allergies Allergy/AdvReac Type Severity Reaction Status Date / Time Sulfa (Sulfonamide Allergy UNKNOWN Verified 07/15/24 15:22 Antibiotics) PFSH Acute 2 PFSH: Medical History (Updated 12/08/24 @ 04:47 by Cathleen Lieberman MD) Heart failure, unspecified Chronic obstructive pulmonary disease, unspecified Atherosclerotic heart disease of [place] coronary artery without angina pectoris Type 2 diabetes mellitus without complications Essential (primary) hypertension Ischemic cardiomyopathy Surgical History Stented coronary artery H/O hysterectomy for benign disease Social History Smoking and tobacco/nicotine status: former use of tobacco/nicotine Second hand smoke exposure: No Alcohol intake: never Substance/Drug Use: never Vitals/I&O/Wt Last Vital Signs Temp 97.7 F 12/08/24 04:00 Pulse 94 12/08/24 04:00 Resp 25 H 12/08/24 04:00 BP 144/95 12/08/24 04:00 Pulse Ox 100 12/08/24 04:00 O2 Del Method Room Air 12/08/24 04:00 12/07/24 12/07/24 12/08/24 14:59 22:59 06:59 Intake Total 0 / 0 Output Total 0 / 0 Balance 0 / 0 Weight last 48 hrs Weight 85.91 kg Weight 88.451 kg Physical Exam 2 Narrative: General The patient looks well in no apparent distress at this time did have shortness of breath commenting and she is at rest and she has heparin drip going on denies any complaints at the moment. HEENT normocephalic/atraumatic neck neck is supple cardiovascular heart rate is regular lungs are pretty much clear abdomen soft nontender nondistended unremarkable extremities are intact no edema has good pulses neurology has no focality lab studies lab studies reviewed and noted. Data 12/07/24 23:24 12/07/24 23:24 A&P Assessment and plan 1. Dyspnea: 2. Chest pain: 3. Essential (primary) hypertension: 4. Type 2 diabetes mellitus without complications: 5. Atherosclerotic heart disease of [place] coronary artery without angina pectoris: 6. Ischemic cardiomyopathy: Plan: #1 Chest pain with associated shortness of breath - Workup showed elevation of troponin 231.4 and a delta increase of 172.4 - Admit to stepdown unit - Initiated heparin drip with cardiology consultation - Initiate all cardiac medications that is appropriate significant for antiplatelets beta-alecia nitrates #2 Uncontrolled high blood pressure -keep patient normotensive - This can also induce chest pain and cause troponin elevation as well. #3 Ischemic cardiomyopathy - Keep medication cardiac friendly #4 Diabetes type 2/hypertension/diabetes type 2/hyperlipidemia - Keep patient euglycemic - Continue patient home medication for all chronic medical problems #5 GI and DVT prophylaxis in place PDMP PDMP Reviewed: Last Reviewed 12/08/24 04:48 by Cathleen Lieberman MD Attestations 2 Medical Necessity Statement*: Patient with shortness of breath and chest pain with much elevated delta enzymes will need at least 2 midnights for optimization of care with cardiology consultation. Coding Level of Care Code 79416 Diagnoses Dyspnea R06.00 Chest pain R07.9 Essential (primary) hypertension I10 Type 2 diabetes mellitus without complications E11.9 Atherosclerotic heart disease of [place] coronary artery without angina pectoris I25.10 Ischemic cardiomyopathy I25.5 Time Spent (min) 60
[2024-12-08 04:43] LABS: Hematocrit 35.0 % (36-47); Hemoglobin 12.20 g/dL (11.27-16.99); Mean Corpuscular HGB Conc 34.9 g/dL (30-55); Mean Corpuscular Hemoglobin 31.0 pg (27-33); Mean Corpuscular Volume 88.8 fl (85-98); Nucleated Red Blood Cells % 0 %; Platelet Count 297 10^3/cmm (157-399); Red Blood Count 3.94 10^6/uL (3.85-5.65); White Blood Count 14.85 10^3/uL (3.29-11.43)
[2024-12-08 05:08] LABS: Alanine Aminotransferase 13 U/L (0-33); Albumin Level 3.7 g/dL (3.5-5.2); Alkaline Phosphatase 73 U/L (35-105); Anion Gap 17.3 (5-19); Aspartate Amino Transferase 19 U/L (0-32); Blood Urea Nitrogen 12 mg/dL (8-23); Calcium 8.5 mg/dL (8.5-10.5); Carbon Dioxide 22 mmol/L (22-29); Chloride 96 mmol/L (98-107); Creatinine Clr Calc Pharmacy 62.3883; Globulin 2.4 g/dL (1.3-4.6); Glucose 125 mg/dL (65-115); Magnesium 1.5 mg/dL (1.7-2.3); Osmolality Calculated 275 mOsm/kg (285-295); Potassium 3.3 mmol/L (3.5-5.1); Sodium 132 mmol/L (136-145); Total Protein 6.1 g/dL (6.6-8.7)
[2024-12-08 05:15] LABS: Troponin 5 6HR 324.4 ng/L (0-10); Troponin 5 6HR Delta 265.4 ng/L (0-12)
--- NOTE | 2024-12-08 08:55 | PM.CONSULT ---
Providers/Reason For Consult Consulting Physician/Specialty*: BOOKER Quispe MD/cardiology Reason for Consult*: Patient with the chest pain and elevated troponin T Attending Physician: Tanna Smith MD Primary Care Provider: CHACE Murillo History of Present Illness History of Present Illness Eliz Laws is a 74 year old female is admitted to hospital with complaints of recurrent episodes of back pain and neck pain. She was found to have elevated troponin T with a significant delta. Cardiology consult requested for further cardiac evaluation and recommendations. This patient is known to have atherosclerotic heart disease, high blood pressure, diabetes and dyslipidemia. She apparently had PCI approximately 8 years ago. In 2019, she had a cardiac catheterization which revealed a mild to moderate diffuse coronary artery disease. It was opted to treat her medically at that time. Over the last 2 months, she been having episodes of back pain radiate to the neck. She may have these episodes 2 or 3 times a week. Each of these episodes may last for 10 to 15 minutes. The pain was moderate intensity. Usually these episodes subside spontaneously or with the 1 sublingual nitro. She also has been feeling tired easily and also of been feeling weak in her legs for the last few months. She had a Myocardial perfusion imaging in July of this year which revealed the small area of fixed defects around the apex. No reversible defects were noted. It was opted to treat him medically at that time. She denies any fever, chills or cough. No nausea or vomiting. No orthopnea or PND. No other specific complaints. She has been compliant with the medications. She has a family history-both parents had atherosclerotic heart disease in their 60s and 70s. No other relevant family history. She had contrast-induced nephropathy in 2019 following the angiogram. The kidney function improved spontaneously. Details of the previous angiogram as mentioned below Her initial troponin T was 59 with a delta of 175 in 2 hours and 262 innd 6 hours Review of Systems Narrative: CONSTITUTIONAL: No fever or chills. No fever, chills or cough EYES: No blurring of vision or other visual disturbances lately. ENT: No hoarseness of voice, auditory disturbances or sore throat. CARDIOVASCULAR: As mentioned above. RESPIRATORY: No significant cough. GASTROINTESTINAL: No hematemesis or melena. GENITOURINARY: No dysuria or hematuria. INTEGUMENTARY: No skin rashes or history of skin cancer. NEURO: No transient ischemic attacks or amaurosis. PSYCHIATRIC: No history of psychosis or major depression. HEMATOLOGIC: No bleeding disorders or significant anemia. ENDOCRINE: No history of polyuria or polydipsia. MUSCULOSKELETAL: No recent joint pain or swelling. ALLERGY/IMMUNOLOGY: As mentioned above. Medications/Allergies Home Medications ?Medication ?Instructions ?Recorded ?Confirmed ?Last Taken ?Type aspirin 81 mg tablet,delayed 81 mg PO DAILY 04/14/19 12/08/24 12/07/24 History release (Adult Low Dose Aspirin) clopidogrel 75 mg tablet 75 mg PO DAILY 04/14/19 12/08/24 12/07/24 History pantoprazole 40 mg tablet,delayed 40 mg PO DAILY 04/14/19 12/08/24 12/07/24 History release carvedilol 6.25 mg tablet 6.25 mg PO BID 10/19/19 12/08/24 12/07/24 History nitroglycerin 0.4 mg sublingual 0.4 mg sublingual Q5M PRN chest 12/04/19 12/08/24 Unknown History tablet pain isosorbide dinitrate 5 mg tablet 5 mg PO BID #180 tabs 09/08/20 12/08/24 12/07/24 Rx losartan 50 mg-hydrochlorothiazide 1 tab PO BID #180 tabs 12/05/20 12/08/24 12/07/24 Rx 12.5 mg tablet metformin 500 mg tablet,extended 500 mg PO DAILY 12/13/20 12/08/24 12/07/24 History release 24 hr simvastatin 20 mg tablet 20 mg PO DAILY 05/09/22 12/08/24 12/07/24 History nitrofurantoin macrocrystal 50 mg 50 mg PO BEDTIME 12/08/24 12/08/24 12/07/24 History capsule potassium gluconate 600 mg (99 mg) 600 mg PO DAILY 12/08/24 12/08/24 12/07/24 History tablet prednisone 5 mg tablet 5 mg PO DAILY 12/08/24 12/08/24 12/07/24 History tirzepatide 7.5 mg/0.5 mL 7.5 mg SUBCUT Q7D 12/08/24 12/08/24 12/07/24 History subcutaneous pen injector (Mounjaro) Allergies Allergy/AdvReac Type Severity Reaction Status Date / Time Sulfa (Sulfonamide Allergy UNKNOWN Verified 07/15/24 15:22 Antibiotics) Current Medications Generic Name Dose Route Start Last Admin Trade Name Thao PRN Reason Stop Dose Admin Heparin Sodium/Sodium Chloride 25,000 unit in 500 mls @ 0 mls/hr 12/08/24 02:00 12/08/24 02:54 Heparin Drip IV 14.13 unit/kg/hr CONT JACKIE 25 mls/hr Protocol Administration Per Protocol Sodium Chloride 1,000 mls @ 75 mls/hr 12/08/24 03:45 12/08/24 05:47 Sodium Chloride 0.9% IV 75 mls/hr .[id number] JACKIE Administration Sodium Chloride 1,000 mls @ 100 mls/hr 12/08/24 04:14 12/08/24 05:47 Sodium Chloride 0.9% IV Not Given .Q10H JACKIE Pantoprazole Sodium 40 mg 12/08/24 09:00 12/08/24 08:[address] 40 Mg Tablet PO 40 mg DAILY JACKIE Administration PFSH Acute PFSH: Medical History Heart failure, unspecified Chronic obstructive pulmonary disease, unspecified Atherosclerotic heart disease of [place] coronary artery without angina pectoris Type 2 diabetes mellitus without complications Essential (primary) hypertension Ischemic cardiomyopathy Surgical History Stented coronary artery H/O hysterectomy for benign disease Social History Smoking and tobacco/nicotine status: former use of tobacco/nicotine Second hand smoke exposure: No Alcohol intake: never Substance/Drug Use: never Vitals/I&O/Wt Last Vital Signs Temp 98.1 F 12/08/24 07:17 Pulse 97 12/08/24 07:17 Resp 16 12/08/24 07:17 BP 111/64 12/08/24 07:17 Pulse Ox 96 12/08/24 07:17 O2 Del Method Room Air 12/08/24 04:17 12/07/24 12/08/24 12/08/24 22:59 06:59 14:59 Intake Total 0 / 0 Output Total 0 / 0 Balance 0 / 0 Weight last 48 hrs Weight 189 lb 6.4 oz Weight 195 lb Physical Exam Narrative: GENERAL: The patient is alert and oriented times three. Not in any acute distress. HEENT: No significant pallor, icterus or lymphadenopathy.Oral cavity: There are no mucous membrane lesions. NECK: Trachea appears to be central. No masses noted. No JVD or thyromegaly appreciated. RESPIRATORY: Chest is symmetrical. No intercostals muscle retraction or any accessory muscle activation. There is no chest wall tenderness. Breath sounds are heard bilaterally. No rales or rhonchi heard. No evidence of any consolidation. BREASTS: Deferred. HEART: The heart sounds are normal. No S3 or S4. No significant murmurs. No pericardial rub ABDOMEN: No vessel pulsations or distention. No tenderness. No organomegaly appreciated. Bowel sounds are normally heard. : Deferred. RECTAL: Deferred. LYMPHATIC: No lymphadenopathy noted in the neck. EXTREMITIES: The peripheral pulses are palpable but weak bilaterally. SKIN: There are no significant rashes or ecchymosis NEUROPSYCHIATRIC: The patient is alert and oriented x3. Appears to be in a good mood. No tremors or rigidity noted. Data 12/08/24 04:32 12/08/24 04:32 Other Labs: Laboratory Last Values WBC 14.85 10^3/uL (3.29-11.43) H 12/08/24 04:32 RBC 3.94 10^6/uL (3.85-5.65) 12/08/24 04:32 Hgb 12.20 g/dL (11.27-16.99) 12/08/24 04:32 Hct 35.0 % (36-47) L 12/08/24 04:32 MCV 88.8 fl (85-98) 12/08/24 04:32 MCH 31.0 pg (27-33) 12/08/24 04:32 MCHC 34.9 g/dL (30-55) 12/08/24 04:32 RDW 12.9 % (12.1-15.1) 12/08/24 04:32 Plt Count 297 10^3/cmm (157-399) 12/08/24 04:32 MPV 9.4 fL (7.4-10.4) 12/08/24 04:32 Neut % (Auto) 62.4 % 12/08/24 04:32 Lymph % (Auto) 29.6 % 12/08/24 04:32 [place] % (Auto) 6.1 % 12/08/24 04:32 Eos % (Auto) 1.1 % 12/08/24 04:32 Baso % (Auto) 0.4 % 12/08/24 04:32 Neut # (Auto) 9.26 10^3/uL (1.8-7.7) H 12/08/24 04:32 Lymph # (Auto) 4.4 10^3/uL (0.8-4.8) 12/08/24 04:32 [place] # (Auto) 0.9 10^3/uL (0.2-0.9) 12/08/24 04:32 Eos # (Auto) 0.2 10^3/uL (0.0-0.8) 12/08/24 04:32 Baso # (Auto) 0.1 10^3/uL (0.0-0.1) 12/08/24 04:32 Nucleated RBC % (auto) 0 % 12/08/24 04:32 Nucleated RBCs # 0.0 /100WBC 12/08/24 04:32 D-Dimer 0.36 ug/mLFEU (0-0.59) 12/07/24 23:24 Sodium 132 mmol/L (136-145) L 12/08/24 04:32 Potassium 3.3 mmol/L (3.5-5.1) L 12/08/24 04:32 Chloride 96 mmol/L (98-107) L 12/08/24 04:32 Carbon Dioxide 22 mmol/L (22-29) 12/08/24 04:32 Anion Gap 17.3 (5-19) 12/08/24 04:32 BUN 12 mg/dL (8-23) 12/08/24 04:32 Creatinine 0.9 mg/dL (0.5-0.9) 12/08/24 04:32 GFR Calculation Not Reportable 12/08/24 04:32 Glucose 125 mg/dL (65-115) H 12/08/24 04:32 Calculated Osmolality 275 mOsm/kg (285-295) L 12/08/24 04:32 Calcium 8.5 mg/dL (8.5-10.5) 12/08/24 04:32 Magnesium 1.5 mg/dL (1.7-2.3) L 12/08/24 04:32 Total Bilirubin 0.5 mg/dL (0.15-1.2) 12/08/24 04:32 AST 19 U/L (0-32) 12/08/24 04:32 ALT 13 U/L (0-33) 12/08/24 04:32 Alkaline Phosphatase 73 U/L (35-105) 12/08/24 04:32 Troponin T Baseline 59 ng/L (0-10) H 12/07/24 23:24 Troponin T 120 Minute 231.4 ng/L (0-10) H 12/07/24 01:16 Delta Troponin T 172.4 ABS# (0-10) H* 12/07/24 01:16 Troponin T Hi Sens 6Hr 324.4 ng/L (0-10) H 12/08/24 04:32 Troponin T Hi Sens 6Hr Delta 265.4 ng/L (0-12) H* 12/08/24 04:32 Total Protein 6.1 g/dL (6.6-8.7) L 12/08/24 04:32 Albumin 3.7 g/dL (3.5-5.2) 12/08/24 04:32 Globulin 2.4 g/dL (1.3-4.6) 12/08/24 04:32 Other data: EKG from today Normal sinus rhythm with poor R wave progression. Low voltage complexes in the limb leads. Diffuse nonspecific T wave changes in the anterolateral leads. Left axis deviation. Myocardial perfusion imaging on 07/31/2024 1. Abnormal myocardial perfusion imaging with small sized area of prior infarct seen in apical, apical lateral and apical inferior goldstein. 2. LV systolic function is normal Echocardiogram on 07/13/2024 Normal left ventricular size and systolic function, EF 63%. No regional wall motion abnormalities. Grade I/IV diastolic dysfunction (abnormal relaxation filling pattern), normal to mildly elevated filling pressures. Mild left ventricular hypertrophy. Mildly increased left atrial size. Mild mitral annular calcification. There is no pericardial effusion. There are no intracardiac masses. Compared to the study from 05/19/2016, there is significant improvement of the LV ejection fraction from 41% to 63% Cardiac catheterization on 10/20/2019 LM has 0% stenosis. mLAD: Mild 30% stenosis, JASON: 3 flow. pCIRC: Mild 30% stenosis, JASON: 3 flow. 1st OM: Mild 40% stenosis, JAOSN: 3 flow. pRCA: Moderate 60% stenosis, JASON: 3 flow. Coronary angiography shows right dominance. A&P Assessment and plan 1. Non-ST elevation [place] (NSTEMI): This patient is going to features of a non-ST elevation myocardial infarction. She will be treated with Lovenox, Plavix, aspirin, beta-alecia and other symptomatic measures. 2. Atherosclerosis of [place] coronary artery of [place] heart without angina pectoris: Patient is known to have previous PCI. Angiogram in 2020 revealed mild to moderate diffuse coronary artery disease. Repeat coronary angiogram would be appropriate to reevaluate the coronary status and decide on further management. 3. Essential (primary) hypertension: The blood pressure seems to be fairly under control. May continue on the current medications. 4. Type 2 diabetes mellitus without complication, unspecified whether superintendent container terminal insulin use: Optimize the treatment as per the primary. 5. Dyslipidemia: May continue on the current management. 6. Peripheral arterial occlusive disease: Patient may benefit from artery Doppler examination to further evaluate. Plan: Patient may benefit from a cardiac colorization to further evaluate the coronary status and decide on further management. This was discussed with the patient in detail. Risk and benefits were discussed. The risk of bleeding, hematoma, vascular injury, myocardial infarction, myocardial perforation, malignant cardiac arrhythmias ,CVA, renal failure and other concomitant complications were explained in detail. Patient understood this well and consented to proceed. Patient is being followed by in the clinic. So will be performing the procedure. Possibility of contrast-induced nephropathy was discussed Hold the metformin today and for the next 2 days Supplement potassium Will hydrate her prior to the procedure and also following the procedure. PDMP PDMP Reviewed: Not Reviewed Consult Attestations Medical Necessity Statement: Patient requires continued hospital stay for close monitoring and further management Coding Level of Care Code 75745 Diagnoses Non-ST elevation [place] (NSTEMI) I21.4 Atherosclerosis of [place] coronary artery of [place] heart without angina pectoris I25.10 [place] vs. transplanted heart: [place] heart Essential (primary) hypertension I10 Type 2 diabetes mellitus without complication, unspecified whether superintendent container terminal insulin use E11.9 Diabetes mellitus superintendent container terminal insulin use: unspecified superintendent container terminal insulin use status Dyslipidemia E78.5 Peripheral arterial occlusive disease I77.9
--- NOTE | 2024-12-08 09:51 | PC.NURSE ---
Addendum entered by Heather Low RN 12/08/24 09:53: Also decrease NS to 50ml/hr. Original Note: Provider is updated about her aspirin order. She will be getting aspirin 325mg prior to cathode washer, provider okay to not give the aspirin 81mg that she ordered this morning.
[2024-12-08 10:47] LABS: Partial Thromboplastin Time > 250.0 SECONDS (23.9-36.7)
--- NOTE | 2024-12-08 12:27 | W.PM.OPSUD ---
Surgery/Procedure H&P Update DATE OF PROCEDURE: December 08, 2024 DATE H&P PERFORMED: 12/08/24 H&P UPDATE INFORMATION: I have reviewed H&P completed within last 30 days, I have examined patient prior to procedure and No changes to prior documentation PREOP DIAGNOSIS: [id number] [place] PRIMARY INDICATION FOR PROCEDURE: Zai-HU-dvdkozjsx M PLANNED PROCEDURE: Left heart cath/PCI if indicated PATIENT REASSESSED PRIOR TO SEDATION, WITH NO CHANGE NOTED: Yes PHYSICAL EXAM: alert, oriented x 3, clear to auscultation bilaterally, regular rate & rhythm and operative site marked AIRWAY EVAL/ANESTHESIA PLAN: ASA II, Risks, benefits & alternatives of sedation and/or procedure discussed and Patient agrees to continue as planned ADDITIONAL INFORMATION: All risk-benefit and already for the procedure has been explained to the patient. Patient understand 2% risk of stroke major bleed. Patient understand 5% risk of minor bleeding bruising infection hematoma contrast induced nephropathy pseudoaneurysm urgent emergent vascular bypass surgery. Patient understood and would like to proceed with that.
--- NOTE | 2024-12-08 13:07 | PC.NURSE ---
Left CSU for label rewinder at 1203.
--- NOTE | 2024-12-08 13:56 | P.PCN_ITS ---
Procedure Note: Date of procedure: 12/08/24 Pre-procedure diagnosis: Olk-TL-iholrllhi M Procedure: Cuj-OQ-dzxixhaiz NH Left heart cath was performed Left main: Normal LAD has proximal 60 to 70% stenosis prior to with the previously placed mid LAD stent Left circumflex has proximal eccentric 50% stenosis RCA has patent previously placed mid stent with minimal in-stent restenosis IFR to LAD was +0.74 IFR to LCx was negative for ischemia 0.91 PCI to proximal LAD and to mid stent using drug-eluting stent. [place] 3.0 x 22 mm stent was used postdilated with 3.5 x 15 mm noncompliant balloon. Plan: Dual antiplatelet therapy IV fluid 100 mL/h for next 10 hours Full note to be dictated Coding Level of Care Code Acute Code for Arac[facility] Cline
--- NOTE | 2024-12-08 14:02 | PM.MISC ---
Miscellaneous Note Note: Seen this morning. Patient awaiting coronary angiogram. Continue heparin drip at this time. Further management decisions to be made after cath is complete. Continue aspirin Plavix atorvastatin Will discuss with cardiology. Patient lying in bed awaiting procedure.
--- NOTE | 2024-12-08 14:03 | PC.NURSE ---
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
--- NOTE | 2024-12-08 18:48 | PC.NURSE ---
Patient right radial TR-band is removed. The air in the TR-band is removed slowly 2 ml's at a time. The band is removed at 1845, no hematoma is noted. Patient tolerated well. Patient is reeducated not to use her right wrist/hand for the first 24 hours. Patient states understanding.
[2024-12-09 00:13] VITALS: BP 94/47; TEMP 37.1; O2SAT 95
[2024-12-09 04:54] LABS: Hematocrit 32.4 % (36-47); Hemoglobin 11.10 g/dL (11.27-16.99); Mean Corpuscular HGB Conc 34.3 g/dL (30-55); Mean Corpuscular Hemoglobin 30.7 pg (27-33); Mean Corpuscular Volume 89.5 fl (85-98); Nucleated Red Blood Cells % 0 %; Platelet Count 245 10^3/cmm (157-399); Red Blood Count 3.62 10^6/uL (3.85-5.65); White Blood Count 6.27 10^3/uL (3.29-11.43)
[2024-12-09 05:09] VITALS: BP 92/59; PULSE 98; RESP 20; TEMP 36.9; O2SAT 93
[2024-12-09 05:27] LABS: Alanine Aminotransferase 10 U/L (0-33); Albumin Level 3.2 g/dL (3.5-5.2); Alkaline Phosphatase 66 U/L (35-105); Anion Gap 15.3 (5-19); Aspartate Amino Transferase 15 U/L (0-32); Blood Urea Nitrogen 13 mg/dL (8-23); Calcium 8.0 mg/dL (8.5-10.5); Carbon Dioxide 23 mmol/L (22-29); Chloride 101 mmol/L (98-107); Creatinine Clr Calc Pharmacy 51.0450; Globulin 2.1 g/dL (1.3-4.6); Glucose 95 mg/dL (65-115); Magnesium 1.7 mg/dL (1.7-2.3); Osmolality Calculated 280 mOsm/kg (285-295); Potassium 4.3 mmol/L (3.5-5.1); Sodium 135 mmol/L (136-145); Total Protein 5.3 g/dL (6.6-8.7)
[2024-12-09 08:00] VITALS: BP 119/59; PULSE 69; RESP 19; TEMP 36.7; O2SAT 96
--- NOTE | 2024-12-09 09:45 | PC.CHAP ---
Pastoral Care Encounter/Spiritual Assessment Type of Contact [] Declined medical office receptionist visit [] Patient/Family/Request visit [] Outpatient visit [] Follow-up visit [] Physician referral [] Code/Alert [x] Routine visit [] Staff referral [] Actively dying [] Patient sleeping [x] Family support [] [] Out of room [] Palliative care [] [] Receiving care in room [] Pre-surgical visit [] Trauma [] Long length of stay [] ICU visit [] Other: Relational/Emotional Strength [x] Patient feels connected with others/family/visitors/staff [] Distress [] Loneliness/isolation [] Abandonment Spirituality of Patient [x] Person of [place] [] Attends Scientologist of their [place] [x] Believes in Prayer [] Reads Bible or Muslim materials [] There are Spiritual issues to be addressed Behavioral Health Specialist Interventions [x] Prayer [x] Active listening [] Non-anxious presence [x] Spiritual/emotional support [] Crisis/trauma care [] Spiritual counseling [] Bereavement support [] Provided bereavement packet [] Provided Bible/devotional materials [] Provided toy/stuffed animal, coloring book to patient or family member [] Provided Communion [] Anointing/Fisher [] Salvation [x] Completed spiritual assessment [] Other: Impact on Illness or Injury [] Angry [] Fearful [] Anxious [] Often cries [] Exhaustion [] Unable to work [] Unable to attend latter day [] Unable to walk/stand [] Unable to read [] Unable to drive [] Unable to eat/drink [] Unable to sleep [] Unable to be with family [] Patient intubated [] Other: Summary Time spent with patient 5 min
--- NOTE | 2024-12-09 10:27 | PM.PN ---
Subjective Subjective: She has done well overnight, no chest pain or shortness of breath. No complications with right radial cath site. She is ready to go home. Vitals/I&O/Wt Last Vital Signs Temp 98.0 F 12/09/24 08:00 Pulse 69 12/09/24 08:00 Resp 19 H 12/09/24 08:00 BP 119/59 12/09/24 08:00 Pulse Ox 96 12/09/24 08:00 O2 Del Method Room Air 12/09/24 05:09 12/08/24 12/09/24 12/09/24 22:59 06:59 14:59 Intake Total 693.75 / 1966.250 528.333 / 1966.250 240 / 240 Balance 693.75 / 1966.250 528.333 / 1966.250 240 / 240 Weight last 48 hrs Weight 193 lb 5 oz Weight 189 lb 6.4 oz Weight 195 lb Physical Exam Const: COMMON NORMALS: no acute distress and patient oriented x3 GENERAL APPEARANCE: cooperative ORIENTATION/CONSCIOUSNESS: Yes awake, Yes oriented to person, Yes oriented to place and Yes oriented to time Chest: COMMONS NORMALS: normal inspection of the chest and normal palpation of entire chest wall CHEST: Yes Symmetrical chest wall rise Resp: COMMON NORMALS: normal respiratory effort, No retractions, No use of accessory muscles and clear to auscultation bilaterally AUSCULTATION: clear to auscultation bilaterally Cardio: COMMON NORMALS: regular rate, regular rhythm, S1 normal heart sound present, S2 normal heart sound present, No gallops present (Cardio), No clicks present (Cardio), No murmurs present (Cardio) and No rub (Cardio) RATE: regular rate RHYTHM: regular rhythm HEART SOUNDS: S1 normal heart sound present and S2 normal heart sound present PERIPHERAL PULSES: radial pulses present positive right 2+ and femoral pulses present positive right 2+ Neuro: COMMON NORMALS: patient oriented x3 and moves all extremities SENSORIUM/ORIENTATION: Yes oriented to person, Yes oriented to place and Yes oriented to time Skin: WOUNDS: Yes surgical site (no hematoma palpable) Details: no odor Data 12/09/24 04:20 12/09/24 04:20 A&P Assessment and plan 1. Atherosclerosis of [place] coronary artery of [place] heart without angina pectoris: 2. Non-ST elevation [place] (NSTEMI): 3. Dyslipidemia: 4. Essential (primary) hypertension: 5. Type 2 diabetes mellitus without complication, unspecified whether long filler cigar roller machine insulin use: Plan: She underwent stent placement to pLAD, medical management of non ischemic circumflex. She was already on aspirin and Plavix, instructed her to continue. Her blood pressure has been soft here, recommended to her to hold carvedilol if blood pressure is less than 110 systolic. Hold losartan/hctz until blood pressure greater than 130, can re-evaluate dose at her follow up visit if she is unable to restart due to low blood pressure. She has normal LVEF, does not require ARB for HF. Resume metformin on 12/11/24. Continue isosorbide. PDMP PDMP Reviewed: Not Reviewed Attestations Medical Necessity Statement*: discharge home Coding Level of Care Code Acute Code for [facility] Diagnoses Atherosclerosis of [place] coronary artery of [place] heart without angina pectoris I25.10 [place] vs. transplanted heart: [place] heart Non-ST elevation [place] (NSTEMI) I21.4 Dyslipidemia E78.5 Essential (primary) hypertension I10 Type 2 diabetes mellitus without complication, unspecified whether long filler cigar roller machine insulin use E11.9 Diabetes mellitus long filler cigar roller machine insulin use: unspecified custodial insulin use status
--- NOTE | 2024-12-09 11:06 | P.DS_ITS ---
Discharge Providers Date of Admission: 12/08/24 01:58 Date of Discharge: December 09, 2024 Attending Provider at Admission: Cathleen Lieberman MD Attending Provider at Discharge: Tanna Smith MD Primary Care Provider: CHACE Murillo Diagnoses at Discharge Discharge Diagnosis 1. Atherosclerosis of [place] coronary artery of [place] heart without angina pectoris: 2. Non-ST elevation MD (NSTEMI): 3. Dyslipidemia: 4. Essential (primary) hypertension: 5. Type 2 diabetes mellitus without complication, unspecified whether intermediate designer insulin use: Reason for Visit Reason for Visit: High BP, CHEST PAIN Hospital Course Hospital Course Patient presented to the hospital with chest pain and uncontrolled high blood pressure. Troponin was elevated. Patient ruled in for NSTEMI. Cardiology was consulted. Patient was taken for coronary angiogram which showed the following: Left heart cath was performed Left main: Normal LAD has proximal 60 to 70% stenosis prior to with the previously placed mid LAD stent Left circumflex has proximal eccentric 50% stenosis RCA has patent previously placed mid stent with minimal in-stent restenosis IFR to LAD was +0.74 IFR to LCx was negative for ischemia 0.91 PCI to proximal LAD and to mid stent using drug-eluting stent. Manuel 3.0 x 22 mm stent was used postdilated with 3.5 x 15 mm noncompliant balloon. Plan: Dual antiplatelet therapy Per instructions from cardiology patient was discharged home the next day. She was discharged on dual antiplatelet therapy. Will follow-up with cardiology as an outpatient. Physical Exam Const: COMMON NORMALS: no acute distress and patient oriented x3 GENERAL APPEARANCE: cooperative ORIENTATION/CONSCIOUSNESS: Yes awake, Yes oriented to person, Yes oriented to place and Yes oriented to time Chest: COMMONS NORMALS: normal inspection of the chest and normal palpation of entire chest wall CHEST: Yes Symmetrical chest wall rise Resp: COMMON NORMALS: normal respiratory effort, No retractions, No use of accessory muscles and clear to auscultation bilaterally AUSCULTATION: clear to auscultation bilaterally Cardio: COMMON NORMALS: regular rate, regular rhythm, S1 normal heart sound present, S2 normal heart sound present, No gallops present (Cardio), No clicks present (Cardio), No murmurs present (Cardio) and No rub (Cardio) RATE: regular rate RHYTHM: regular rhythm HEART SOUNDS: S1 normal heart sound present and S2 normal heart sound present PERIPHERAL PULSES: radial pulses present positive right 2+ and femoral pulses present positive right 2+ Neuro: COMMON NORMALS: patient oriented x3 and moves all extremities SENSORIUM/ORIENTATION: Yes oriented to person, Yes oriented to place and Yes oriented to time Skin: WOUNDS: Yes surgical site (no hematoma palpable) Details: no odor Discharge Data Studies Completed and Pending Completed Studies During Hospitalization Category Date Time Status CT head wo con* [id number] Stat Cat Scan 12/07/24 23:08 Completed XR chest 1V portable [id number] Stat Exams 12/07/24 21:54 Completed Pending at discharge Category Date Time Status [employer] request for service Routine Exams 12/08/24 09:03 Taken Platelet Count Q2D Lab 12/10/24 04:00 Ordered Platelet Count Q2D Lab 12/12/24 04:00 Ordered Radiology Impressions Chest X-Ray 12/07/24 21:54 IMPRESSION: No acute findings. Head CT 12/07/24 23:08 IMPRESSION: 1. No acute intracranial abnormality. 2. Mild age-related changes. A few other chronic/incidental findings above. Laboratory Results WBC 6.27 10^3/uL (3.29-11.43) 12/09/24 04:20 RBC 3.62 10^6/uL (3.85-5.65) L 12/09/24 04:20 Hgb 11.10 g/dL (11.27-16.99) L 12/09/24 04:20 Hct 32.4 % (36-47) L 12/09/24 04:20 MCV 89.5 fl (85-98) 12/09/24 04:20 MCH 30.7 pg (27-33) 12/09/24 04:20 MCHC 34.3 g/dL (30-55) 12/09/24 04:20 RDW 13.3 % (12.1-15.1) 12/09/24 04:20 Plt Count 245 10^3/cmm (157-399) 12/09/24 04:20 MPV 9.7 fL (7.4-10.4) 12/09/24 04:20 Neut % (Auto) 52.2 % 12/09/24 04:20 Lymph % (Auto) 37.3 % 12/09/24 04:20 [place] % (Auto) 7.8 % 12/09/24 04:20 Eos % (Auto) 1.8 % 12/09/24 04:20 Baso % (Auto) 0.6 % 12/09/24 04:20 Neut # (Auto) 3.27 10^3/uL (1.8-7.7) 12/09/24 04:20 Lymph # (Auto) 2.3 10^3/uL (0.8-4.8) 12/09/24 04:20 [place] # (Auto) 0.5 10^3/uL (0.2-0.9) 12/09/24 04:20 Eos # (Auto) 0.1 10^3/uL (0.0-0.8) 12/09/24 04:20 Baso # (Auto) 0.0 10^3/uL (0.0-0.1) 12/09/24 04:20 Nucleated RBC % (auto) 0 % 12/09/24 04:20 Nucleated RBCs # 0.0 /100WBC 12/09/24 04:20 APTT > 250.0 SECONDS (23.9-36.7) H* 12/08/24 09:25 D-Dimer 0.36 ug/mLFEU (0-0.59) 12/07/24 23:24 Sodium 135 mmol/L (136-145) L 12/09/24 04:20 Potassium 4.3 mmol/L (3.5-5.1) 12/09/24 04:20 Chloride 101 mmol/L (98-107) 12/09/24 04:20 Carbon Dioxide 23 mmol/L (22-29) 12/09/24 04:20 Anion Gap 15.3 (5-19) 12/09/24 04:20 BUN 13 mg/dL (8-23) 12/09/24 04:20 Creatinine 1.1 mg/dL (0.5-0.9) H 12/09/24 04:20 GFR Calculation Not Reportable 12/09/24 04:20 Glucose 95 mg/dL (65-115) 12/09/24 04:20 POC Glucose 105 mg/dL (70-110) 12/08/24 16:27 Calculated Osmolality 280 mOsm/kg (285-295) L 12/09/24 04:20 Calcium 8.0 mg/dL (8.5-10.5) L 12/09/24 04:20 Magnesium 1.7 mg/dL (1.7-2.3) 12/09/24 04:20 Total Bilirubin 0.5 mg/dL (0.15-1.2) 12/09/24 04:20 AST 15 U/L (0-32) 12/09/24 04:20 ALT 10 U/L (0-33) 12/09/24 04:20 Alkaline Phosphatase 66 U/L (35-105) 12/09/24 04:20 Troponin T Baseline 59 ng/L (0-10) H 12/07/24 23:24 Troponin T 120 Minute 231.4 ng/L (0-10) H 12/07/24 01:16 Delta Troponin T 172.4 ABS# (0-10) H* 12/07/24 01:16 Troponin T Hi Sens 6Hr 324.4 ng/L (0-10) H 12/08/24 04:32 Troponin T Hi Sens 6Hr Delta 265.4 ng/L (0-12) H* 12/08/24 04:32 Total Protein 5.3 g/dL (6.6-8.7) L 12/09/24 04:20 Albumin 3.2 g/dL (3.5-5.2) L 12/09/24 04:20 Globulin 2.1 g/dL (1.3-4.6) 12/09/24 04:20 Vitals Last Vital Signs Temp 98.0 F 12/09/24 08:00 Pulse 69 12/09/24 08:00 Resp 19 H 12/09/24 08:00 BP 119/59 12/09/24 08:00 Pulse Ox 96 12/09/24 08:00 O2 Del Method Room Air 12/09/24 05:09 Discharge Plan Discharge Patient Disposition: Home Condition: Stable Prescriptions: Continued pantoprazole 40 mg tablet,delayed release (DR/EC) 40 mg PO DAILY nitroglycerin 0.4 mg tablet, sublingual 0.4 mg sublingual Q5M PRN (Reason: chest pain) simvastatin 20 mg tablet 20 mg PO DAILY nitrofurantoin macrocrystal 50 mg capsule 50 mg PO BEDTIME prednisone 5 mg tablet 5 mg PO DAILY potassium gluconate 600 mg (99 mg) Tablet 600 mg PO DAILY Mounjaro 7.5 mg/0.5 mL pen injector 7.5 mg SUBCUT Q7D Rx Instructions: Saturday' clopidogrel 75 mg tablet 75 mg PO DAILY Qty: 30 0RF aspirin [Adult Low Dose Aspirin] 81 mg tablet,delayed release (DR/EC) 81 mg PO DAILY Qty: 30 0RF Held losartan-hydrochlorothiazide 50-12.5 mg tablet 1 tab PO BID Qty: 180 3RF Hold Instructions: Resume when blood pressure greater than 130/80. metformin 500 mg tablet extended release 24 hr 500 mg PO DAILY Hold Instructions: Resume on 12/11/24. No Action carvedilol 12.5 mg tablet 12.5 mg PO BID Qty: 180 3RF Rx Instructions: must administer with a meal/food Discharge Order = DC NOW: Discharge Order (Routine); Ordered 12/09/24 Ordered By: Tanna Smith Referrals: Bang Figueroa MD [Family Provider, Cardiology] - 12/16/24 2:00 pm Robertson,CHACE Jules [Primary Care Provider, Nurse Practitioner] - 12/17/24 9:30 am Discharge Diet: Cardiac Discharge Activity: Limit activity as instructed Patient Instructions: Chest Pain - Noncardiac, Coronary Angioplasty (DC), Chronic Hypertension (DC), Opioid Safety, Patient Portal & Haylee Instructions Discharge Attestations Time Spent in Discharge Care*: less than 30 min Quality Metrics Clinical Quality Measures [ No reported AMI, CVA or VTE this stay] Coding Level of Care Code Acute Code for Chg Fwd Diagnoses Atherosclerosis of [place] coronary artery of [place] heart without angina pectoris I25.10 [place] vs. transplanted heart: [place] heart Non-ST elevation MD (NSTEMI) I21.4 Dyslipidemia E78.5 Essential (primary) hypertension I10 Type 2 diabetes mellitus without complication, unspecified whether intermediate designer insulin use E11.9 Diabetes mellitus skilled nursing insulin use: unspecified skilled nursing insulin use status
[2024-12-09 11:16] VITALS: BP 119/59; PULSE 98; RESP 21; O2SAT 96
== END 2024-12-09 11:51 | disposition home or self-care (01) | DRG 321 ==
LOC: ER 12-08 03:35 → CSU 12-08 03:56
PROVIDERS: Admitting Provider Internal Medicine; Emergency Provider Family Medicine; Family Provider Internal Medicine Cardiovascular Disease; PCP Nurse Practitioner Family; Visit Provider Internal Medicine
PROC: 027034Z Dilation of Coronary Artery, One Artery with Drug-eluting Intraluminal Device, Percutaneous Approach (ICD-10-PCS; principal; 2024-12-08 12:00)
PROC: 027034Z Dilation of Coronary Artery, One Artery with Drug-eluting Intraluminal Device, Percutaneous Approach (ICD-10-PCS; 2024-12-08 12:00)
DX: T82.855A Stenosis of coronary artery stent, initial encounter (principal); I21.4 Non-ST elevation (NSTEMI) myocardial infarction; Y71.8 Miscellaneous cardiovascular devices associated with adverse incidents, not elsewhere classified; I25.10 Atherosclerotic heart disease of native coronary artery without angina pectoris; J44.9 Chronic obstructive pulmonary disease, unspecified; I25.5 Ischemic cardiomyopathy; E78.5 Hyperlipidemia, unspecified; E11.9 Type 2 diabetes mellitus without complications; I11.0 Hypertensive heart disease with heart failure; I50.9 Heart failure, unspecified; Z79.899 Other long term (current) drug therapy; Z79.82 Long term (current) use of aspirin; Z79.02 Long term (current) use of antithrombotics/antiplatelets; Z79.84 Long term (current) use of oral hypoglycemic drugs; Z88.2 Allergy status to sulfonamides; Z95.5 Presence of coronary angioplasty implant and graft; Z90.710 Acquired absence of both cervix and uterus; Z87.891 Personal history of nicotine dependence
CPT/HCPCS: 36415; 36416; 70450; 71045; 80053; 82962; 83735; 84484; 85025; 85347; 85378; 85730; 93005; 93454; 93571; 93572; 96365; 96375; 99152; 99153; 99285; C1725; C1769; C1874; C1887; C1894; C9600; J1644; J2250; J3010; J3490; J7030; J9999; Q0163; Q9967

== ENCOUNTER → 2024-12-16 15:07 | Outpatient (BNVA) | payer MEDICARE, SELFPAY | PROVIDERS: Family Provider Internal Medicine Cardiovascular Disease; PCP Nurse Practitioner Family; Visit Provider Internal Medicine Cardiovascular Disease | DX: R07.9 Chest pain, unspecified (principal); Z09 Encounter for follow-up examination after completed treatment for conditions other than malignant neoplasm | CPT/HCPCS: 93005 ==